=== PATIENT | male | born 1955 | race Hispanic/Latino ===

== ENCOUNTER 2017-06-19 02:16 | Emergency (ER) | payer OTHER ==
[2017-06-19] MEDS ORDERED: Adacel (T-DAP) 0.5 ML VIAL ONE (03:17)
[2017-06-19] MEDS ORDERED: Acetaminophen 325 MG TAB ONE (03:35)
== END 2017-06-19 03:50 | disposition home or self-care (01) ==
LOC: ERS 02:16
DX: S00.412A Abrasion of left ear, initial encounter (principal); F10.129 Alcohol abuse with intoxication, unspecified; I10 Essential (primary) hypertension; K21.9 Gastro-esophageal reflux disease without esophagitis; F17.290 Nicotine dependence, other tobacco product, uncomplicated; Z79.891 Long term (current) use of opiate analgesic; Z79.899 Other long term (current) drug therapy; Z23 Encounter for immunization; W17.2XXA Fall into hole, initial encounter
CPT/HCPCS: 90471; 90715

== ENCOUNTER 2018-12-19 16:44 | Emergency (ER) | payer OTHER ==
[2018-12-19] MEDS ORDERED: ISOVUE-370 76%-LOCM 1 ML ONE (16:56)
[2018-12-19 20:02] LABS: #Basophils 0.1 thou/uL (0.0-0.2); #Eosinphils 0.3 thou/uL (0.0-0.7); #Lymphocytes 2.5 thou/uL (1.20-3.40); #Monocytes 0.8 thou/uL (0.11-0.59); %Basophils 0.7 % (0.0-1.0); %Eosinophils 3.3 % (0.0-10.0); %Lymphocytes 28.8 % (21.0-51.0); %Monocytes 9.2 % (0.0-10.0); %Neutrophils 58.1 % (42.0-75.0); Hemoglobin 13.3 g/dL (14.0-18.0); Mean Corpuscular Hemoglobin 34.9 pg (27.0-31.0); Mean Platelet Volume 6.7 fL (7.4-10.4); Platelet Count 220 thou/uL (130-400); RBC Distribution Width 11.7 % (11.5-14.5); Red Blood Cell (RBC) Count 3.81 mill/uL (4.70-6.10); White Blood Cell (WBC) Count 8.6 thou/uL (4.8-10.8)
[2018-12-19 20:17] LABS: MDiff Complete? YES; Macrocytosis SLIGHT = 6-15 cells (100X) (0-5/hpf); Platelet Morphology Comment Appears Adequate; Polychromasia SLIGHT = 2-3 cells (100X) (0-2/hpf)
[2018-12-19 20:18] LABS: Amphetamine Not Detected (NotDetected); Barbiturates Screen Not Detected (NotDetected); Benzodiazepine Screen Not Detected (NotDetected); Cocaine Metabolite Screen Detected (NotDetected); Medtox Control Line Valid? VALID (VALID); Medtox Reader # READER 4; Methadone Not Detected (NotDetected); Methamphetamine Not Detected (NotDetected); Opiate Screen Not Detected (NotDetected); Oxycodone Screen Not Detected (NotDetected); Phencyclidine (PCP) Not Detected (NotDetected); THC/Cannabinoid Screen Not Detected (NotDetected); Tricyclic Screen Not Detected (NotDetected)
[2018-12-19 20:26] LABS: ALT (SGPT) 24 U/L (8-55); AST (SGOT) 34 U/L (5-34); Acetaminophen Less than 6.0 mcg/mL (10.0-30.0); Albumin 3.4 g/dL (3.4-4.8); Alcohol 44 mg/dL (Less than 10); Alkaline Phosphatase 40 U/L (40-150); Anion Gap 12 mmol/L (10-20); BUN (Urea Nitrogen) 7 mg/dL (8.4-25.7); Bilirubin, Total 0.3 mg/dL (0.2-1.2); Calc. Creatinine Clearance 0 mL/min (70-130); Calcium 8.4 mg/dL (7.8-10.44); Carbon Dioxide 25 mmol/L (23-31); Chloride 110 mmol/L (98-107); Estimated GFR-MDRD Greater than 90; Globulin 2.6 g/dL (2.4-3.5); Glucose 90 mg/dL (80-115); Salicylate Less than 8.0 mg/dL (15.0-30.0); Sodium 143 mmol/L (136-145)
--- NOTE | 2018-12-19 21:20 | CT ---
CT BRAIN WITHOUT CONTRAST: 12/19/18 HISTORY: Trauma, fall, weakness. FINDINGS: Comparison made with exam of 02/23/15. Changes of cortical atrophy, chronic small vessel ischemic disease and old lacunar infarctions in the basal ganglia are again seen. The ventricular size is stable and the basilar cisterns patent. No evidence of acute fracture, hemorrhage, midline shift or abnormal extra-axial fluid collections ar e seen. The bony calvarium is intact. The visualized paranasal sinuses and mastoid air cells are well aerated. IMPRESSION: No CT evidence of acute intracranial process. POS: [facility]
--- NOTE | 2018-12-19 21:23 | CT ---
CT CERVICAL SPINE WITH CORONAL AND SAGITTAL REFORMATIONS: 12/19/18 HISTORY: Trauma, fall, weakness. FINDINGS/IMPRESSION: There is loss of cervical lordosis. Multilevel degenerative changes are present. No evidence of acute fracture, subluxation or facet malalignment is identified. POS: [facility]
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
--- NOTE | 2018-12-23 15:35 | EKG ---
Test Reason : ER Blood Pressure : / mmHG Vent. Rate : 091 BPM Atrial Rate : 091 BPM P-R Int : 120 ms QRS Dur : 088 ms QT Int : 378 ms P-R-T Axes : 049 048 043 degrees QTc Int : 464 ms Normal sinus rhythm Normal ECG Confirmed by OBIE LYNCH ([id number]), photographic editor IDALIA GRANADO ([id number]) on 12/23/2018 3:35:14 PM Referred By: Confirmed By:OBIE LYNCH
== END 2018-12-19 23:30 | disposition home or self-care (01) ==
LOC: ERS 16:44
DX: M25.552 Pain in left hip (principal); I10 Essential (primary) hypertension; K21.9 Gastro-esophageal reflux disease without esophagitis; F17.210 Nicotine dependence, cigarettes, uncomplicated; Z79.899 Other long term (current) drug therapy; W17.89XA Other fall from one level to another, initial encounter
CPT/HCPCS: 36415; 70450; 71260; 72125; 74177; 80053; 80306; 80307; 84484; 85025; 93005; Q9966

== ENCOUNTER 2019-02-19 15:16 | Outpatient (CLI) | payer OTHER ==
--- NOTE | 2019-02-19 15:38 | RAD ---
Left knee 4 views HISTORY: Left knee pain. FINDINGS: Joint spaces are preserved. Very mild osteophytosis. No acute fracture, dislocation, or flu id distention of the suprapatellar bursa. Calcification over the arterial structures. IMPRESSION: No acute osseous abnormalities are demonstrated. Atherosclerosis.
--- NOTE | 2019-02-19 15:44 | RAD ---
LEFT HIP 3 VIEWS: HISTORY: Hip pain. FINDINGS: There are mild degenerative changes at the hip. Mild medial joint narrowing and minimal spurring. N o fracture or acute abnormality. IMPRESSION: Mild degenerative change. No acute process. POS: [facility]
--- NOTE | 2019-02-19 15:45 | RAD ---
RIGHT KNEE 4 VIEWS: HISTORY: Knee pain. FINDINGS: There are mild degenerative changes. Mild narrowing of the medial joint space. Mild spurring from t he femoral and tibial condyles and mild spurring from the posterior patella. No evidence of joint ef fusion. No fracture. IMPRESSION: There are mild to moderate degenerative changes as described. POS: [facility]
== END 2019-02-19 15:17 | disposition home or self-care (01) ==
LOC: RAD-FRANK 15:16
PROVIDERS: ATTEND Internal Medicine
DX: S79.919A Unspecified injury of unspecified hip, initial encounter (principal); M16.12 Unilateral primary osteoarthritis, left hip; M17.0 Bilateral primary osteoarthritis of knee

== ENCOUNTER 2019-06-08 16:10 | Emergency (ER) | payer OTHER ==
[2019-06-08] MEDS ORDERED: Ibuprofen 800 MG TAB ONE (16:49)
== END 2019-06-08 16:55 | disposition home or self-care (01) ==
LOC: ERS 16:10
DX: S00.03XA Contusion of scalp, initial encounter (principal); K21.9 Gastro-esophageal reflux disease without esophagitis; I10 Essential (primary) hypertension; F17.210 Nicotine dependence, cigarettes, uncomplicated; Y04.0XXA Assault by unarmed brawl or fight, initial encounter
CPT/HCPCS: 99284

== ENCOUNTER 2020-06-10 14:13 | Emergency (ER) | payer OTHER ==
--- NOTE | 2020-06-10 15:10 | RAD ---
Exam:4 views left knee HISTORY: Pain COMPARISON: 02/19/2019 FINDINGS: No joint effusion. Preserved joint spaces. No fracture or malalignment. Extensive atheroscl erosis. IMPRESSION: No significant degenerative change.
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
== END 2020-06-10 15:56 | disposition home or self-care (01) ==
LOC: ERS 14:13
DX: S80.12XA Contusion of left lower leg, initial encounter (principal); K21.9 Gastro-esophageal reflux disease without esophagitis; I10 Essential (primary) hypertension; Z79.899 Other long term (current) drug therapy; F17.210 Nicotine dependence, cigarettes, uncomplicated; V09.9XXA Pedestrian injured in unspecified transport accident, initial encounter
CPT/HCPCS: 71045

== ENCOUNTER 2020-08-13 12:08 | Emergency (ER) | payer OTHER ==
--- NOTE | 2020-08-13 13:01 | RAD ---
XR Chest 1 View Portable HISTORY: Weakness COMPARISON: 06/10/2020 FINDINGS: The heart size is normal. Calcified granulomas are again seen. The lungs are well expanded without focal areas of consolidation, pneumothorax or pleural effusions. IMPRESSION: No radiographic evidence of acute cardiopulmonary process.
[2020-08-13 13:12] LABS: #Basophils 0.1 thou/uL (0.0-0.2); #Eosinphils 0.1 thou/uL (0.0-0.7); #Lymphocytes 1.9 thou/uL (1.20-3.40); #Monocytes 1.1 thou/uL (0.11-0.59); #Neutrophils 8.3 thou/uL (1.40-6.50); %Basophils 0.6 % (0.0-1.0); %Eosinophils 1.1 % (0.0-10.0); %Lymphocytes 16.6 % (21.0-51.0); %Monocytes 9.6 % (0.0-10.0); %Neutrophils 72.1 % (42.0-75.0); Hemoglobin 14.7 g/dL (14.0-18.0); Mean Corpuscular Hemoglobin 34.2 pg (27.0-31.0); Mean Platelet Volume 6.6 fL (7.4-10.4); Platelet Count 256 thou/uL (130-400); RBC Distribution Width 11.6 % (11.5-14.5); Red Blood Cell (RBC) Count 4.28 mill/uL (4.70-6.10); White Blood Cell (WBC) Count 11.5 thou/uL (4.8-10.8)
[2020-08-13 13:27] LABS: Acetaminophen Less than 6.0 mcg/mL (10.0-30.0); Alcohol Less than 10 mg/dL (Less than 10); Salicylate Less than 8.0 mg/dL (15.0-30.0)
[2020-08-13 13:28] LABS: ALT (SGPT) 18 U/L (8-55); AST (SGOT) 29 U/L (5-34); Albumin 3.9 g/dL (3.4-4.8); Alkaline Phosphatase 49 U/L (40-110); Anion Gap 16 mmol/L (10-20); BUN (Urea Nitrogen) 12 mg/dL (8.4-25.7); Calc. Creatinine Clearance 0 mL/min (70-130); Calcium 8.9 mg/dL (7.8-10.44); Carbon Dioxide 25 mmol/L (23-31); Chloride 100 mmol/L (98-107); Estimated GFR-MDRD 74; Globulin 2.7 g/dL (2.4-3.5); Glucose 95 mg/dL (80-115); Protein, Total 6.6 g/dL (5.8-8.1); Sodium 137 mmol/L (136-145)
--- NOTE | 2020-08-13 13:33 | CT ---
CT Brain WO Con: 08/13/2020 1:15 PM CLINICAL HISTORY: Altered mental status. IMAGING TECHNIQUE: Multiple CT images were obtained of the brain without IV contrast. COMPARISON: CT the brain dated December 19, 2018 FINDINGS: BRAIN: Evidence of acute infarct: None. Evidence of chronic ischemic change:There are multiple small lacunar infarcts involving the basal mahesh glia and both thalami. There is moderate chronic small vessel white matter ischemic change. Evidence of intracranial hemorrhage: None. Evidence of brain volume loss:There is mild generalized cerebral atrophy. Evidence of midline shift: Third ventricle and septum pellucidum are midline. Ventricles: Normal. No hydrocephalus. SKULL: Intact. VISUALIZED PARANASAL SINUSES: Clear. MASTOID AIR CELLS: Clear. EXTRACRANIAL SOFT TISSUES: Normal. IMPRESSION: 1. No acute intracranial abnormality. 2. Stable chronic ischemic changes above
--- NOTE | 2020-08-13 13:35 | CT ---
CT Cervical Spine WO Con Indication: Fall with possible neck injury COMPARISON: Prior exam dated December 19, 2018 FINDINGS: Spinal alignment: Mild retrolisthesis of C3 on C4 is stable. Craniocervical junction: Within normal limits. Fracture: None. Vertebral body heights: Maintained. Prevertebral soft tissues:Normal appearing. Cervical spine degenerative change: Moderate to severe cervical spondylosis is stable. Lung apices: Clear. IMPRESSION: No acute osseous abnormality.
--- NOTE | 2020-08-13 14:18 | RAD ---
XR Hip Lt 2-3 View INDICATION: Fall with left hip pain COMPARISON: June 10, 2020 and February 19, 2019 FINDINGS: Bones: There is osteonecrosis involving the right and left femoral heads without evidence of subchond ral collapse. Hip joint: There is persistent mild left hip osteoarthrosis. SI joints and symphysis pubis: There is mild left SI joint osteoarthrosis. Intrapelvic contents: There numerous phleboliths within the lower pelvis. Surrounding soft tissues: Radiographically normal. IMPRESSION: 1. No acute osseous abnormality.
--- NOTE | 2020-08-13 14:19 | RAD ---
XR Knee Lt 4 View STANDARD: 08/13/2020 1:50 PM CLINICAL INDICATION: Left knee pain; history of fall COMPARISON: June 10, 2020 FINDINGS: Bones: No acute fracture is demonstrated. Joints: No joint capsular distention.. Soft Tissue: There are severe vascular calcifications seen involving the visualized vasculature.. IMPRESSION: No acute osseous abnormality..
[2020-08-13 15:46] LABS: Bilirubin Negative (Negative); Blood, Urine Negative (Negative); Clarity Clear (Clear); Glucose, Urine (Dipstick) Normal (Negative); Ketone, Urine Negative (Negative); Leukocyte Negative Leu/uL (Negative); Nitrite Negative (Negative); Protein, Urine (Dipstick) Negative (Neg-Trace); pH, Urine 7.5 (5.0-9.0)
[2020-08-13 15:59] LABS: Amphetamine Not Detected (NotDetected); Barbiturates Screen Not Detected (NotDetected); Benzodiazepine Screen Not Detected (NotDetected); Cocaine Metabolite Screen Detected (NotDetected); Medtox Control Line Valid? VALID (VALID); Medtox Reader # READER 4; Methadone Not Detected (NotDetected); Methamphetamine Not Detected (NotDetected); Opiate Screen Not Detected (NotDetected); Oxycodone Screen Not Detected (NotDetected); Phencyclidine (PCP) Not Detected (NotDetected); THC/Cannabinoid Screen Not Detected (NotDetected); Tricyclic Screen Not Detected (NotDetected)
== END 2020-08-13 17:26 | disposition home or self-care (01) ==
LOC: ERS 12:08
DX: M25.562 Pain in left knee (principal); M25.552 Pain in left hip; I10 Essential (primary) hypertension; F17.210 Nicotine dependence, cigarettes, uncomplicated; Z79.899 Other long term (current) drug therapy; W19.XXXA Unspecified fall, initial encounter; Y92.481 Parking lot as the place of occurrence of the external cause
CPT/HCPCS: 36415; 70450; 71045; 72125; 80053; 80306; 80307; 81003; 84443; 84484; 85025; 93005; 96374; J3411

== ENCOUNTER 2020-10-05 18:59 | Emergency (ER) | payer OTHER ==
--- NOTE | 2020-10-05 19:55 | RAD ---
Left knee 4 views HISTORY: Injury. COMPARISON: 08/13/2020. FINDINGS: Joint spaces are preserved. Minimal osteophytosis. No acute fracture, dislocation, or fluid distention of the suprapatellar bursa. Calcification over the arterial structures. IMPRESSION : No acute abnormalities are demonstrated.
--- NOTE | 2020-10-05 20:12 | RAD ---
LEFT ANKLE RADIOGRAPHS THREE VIEWS: Date: 10-05-2020 PROVIDED CLINICAL HISTORY: Pain status post fall. FINDINGS: Subcutaneous vascular calcifications are seen. There is no evidence for fracture or other acute osseo us abnormality. If there is persistent clinical concern, conservative management and follow up imagin g are advised. IMPRESSION: As above. POS: [facility]
--- NOTE | 2020-10-05 20:13 | RAD ---
RIGHT KNEE RADIOGRAPHS FOUR VIEWS: Date: 10-05-2020 PROVIDED CLINICAL HISTORY: Pain status post injury. FINDINGS: There is prominent medial femorotibial joint space narrowing with periarticular osteophyte formation. Vascular calcifications are seen. There is no evidence for fracture or other acute osseous abnormali ty. If there is persistent clinical concern, conservative management and follow up imaging are advise d. IMPRESSION: As above. POS: [facility]
== END 2020-10-05 20:55 | disposition home or self-care (01) ==
LOC: ERS 18:59
DX: M25.562 Pain in left knee (principal); M25.561 Pain in right knee; M25.572 Pain in left ankle and joints of left foot; K21.9 Gastro-esophageal reflux disease without esophagitis; I10 Essential (primary) hypertension; F17.210 Nicotine dependence, cigarettes, uncomplicated; W01.0XXA Fall on same level from slipping, tripping and stumbling without subsequent striking against object, initial encounter; Y92.096 Garden or yard of other non-institutional residence as the place of occurrence of the external cause

== ENCOUNTER 2020-10-12 15:57 | Inpatient (IN) | payer OTHER ==
[2020-10-12 16:38] LABS: #Basophils 0.1 thou/uL (0.0-0.2); #Eosinphils 0.3 thou/uL (0.0-0.7); #Lymphocytes 1.9 thou/uL (1.20-3.40); #Monocytes 1.1 thou/uL (0.11-0.59); %Basophils 0.6 % (0.0-1.0); %Monocytes 12.7 % (0.0-10.0); %Neutrophils 59.7 % (42.0-75.0); Hemoglobin 14.9 g/dL (14.0-18.0); Mean Corpuscular HGB CONC 32.2 g/dL (32.0-36.0); Mean Platelet Volume 6.7 fL (7.4-10.4); Platelet Count 245 thou/uL (130-400); RBC Distribution Width 11.8 % (11.5-14.5); White Blood Cell (WBC) Count 8.3 thou/uL (4.8-10.8)
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
[2020-10-12 16:59] LABS: ALT (SGPT) 22 U/L (8-55); AST (SGOT) 23 U/L (5-34); Acetaminophen Less than 6.0 mcg/mL (10.0-30.0); Albumin 3.7 g/dL (3.4-4.8); Alcohol Less than 10 mg/dL (Less than 10); Alkaline Phosphatase 56 U/L (40-110); Anion Gap 14 mmol/L (10-20); BUN (Urea Nitrogen) 13 mg/dL (8.4-25.7); Bilirubin, Total 0.3 mg/dL (0.2-1.2); CK (CPK) 157 U/L (30-200); Calc. Creatinine Clearance 0 mL/min (70-130); Calcium 9.2 mg/dL (7.8-10.44); Carbon Dioxide 29 mmol/L (23-31); Chloride 104 mmol/L (98-107); Globulin 2.9 g/dL (2.4-3.5); Glucose 86 mg/dL (80-115); Potassium 3.9 mmol/L (3.5-5.1); Protein, Total 6.6 g/dL (5.8-8.1); Salicylate Less than 8.0 mg/dL (15.0-30.0); Sodium 143 mmol/L (136-145)
--- NOTE | 2020-10-12 17:47 | RAD ---
EXAM: 4 views of the left knee HISTORY: Knee pain COMPARISON: 10/05/2020 FINDINGS: No knee effusion is seen. There is no evidence of acute fracture or dislocation. No signifi cant degenerative changes are seen. No soft tissue swelling is present. Vascular calcifications are seen. IMPRESSION: No evidence of acute osseous abnormality.
[2020-10-12 17:55] LABS: Bacteria/HPF None Seen HPF (None Seen); Bilirubin Negative (Negative); Blood, Urine 2+ (Negative); Clarity Clear (Clear); Glucose, Urine (Dipstick) Normal (Negative); Ketone, Urine Negative (Negative); Leukocyte 75 Leu/uL (Negative); Nitrite Negative (Negative); Protein, Urine (Dipstick) 10 mg/dL (Neg-Trace); RBC/HPF Greater than 50 HPF (0-3); Squamous Epithelial 0-3 HPF (0-3); Urobilinogen Normal mg/dL (Less than 2); pH, Urine 6.5 (5.0-9.0)
[2020-10-12 18:04] LABS: Amphetamine Not Detected (NotDetected); Barbiturates Screen Not Detected (NotDetected); Benzodiazepine Screen Detected (NotDetected); Cocaine Metabolite Screen Not Detected (NotDetected); Medtox Control Line Valid? VALID (VALID); Medtox Reader # READER 1; Methadone Not Detected (NotDetected); Methamphetamine Not Detected (NotDetected); Opiate Screen Not Detected (NotDetected); Oxycodone Screen Not Detected (NotDetected); Phencyclidine (PCP) Not Detected (NotDetected); THC/Cannabinoid Screen Not Detected (NotDetected); Tricyclic Screen Not Detected (NotDetected)
[2020-10-12] MEDS ORDERED: Multivitamins, Adult 10 ML, Thiamine HCl 100 MG, Folic Acid 1 MG in Dextrose 5 %-0.45 %... IV SCH (19:15)
--- NOTE | 2020-10-12 22:06 | PDOC.HHP ---
Hospitalist HPI Falls History of Present Illness: This is a 65-year-old homeless male patient with a history of chronic back pain, alcoholism, GERD, hypertension who presents to the ED on account of persistent falls. Patient told me he fell today while he was going to the shop. He complains of left knee pain. Of note he was here 7 days ago for evaluation of a fall and knee pain with negative x-ray. He denied any associated headaches fevers cough shortness of breath. It was noted that while being evaluated by ED physician he had fecal incontinence. As presentation his blood pressure was 132/82, pulse 89, respiratory rate 16, saturating 98% on room air with temperature 98.0. His labs showed WBC of 8.3, hemoglobin 14.9 with macrocytosis of 102. Platelet count was 254. Chemistry was essentially unremarkable. Urinalysis showed 2+ blood 75 leukocyte esterase greater than 50 red blood cells and 4-6 WBCs. Urine drug screen was positive for benzodiazepine. CT scan of his C-spine and brain revealed no acute intracranial processes. X-ray of his left knee also revealed no acute osseous abnormality. ED doctor wanted to discharge the patient on account of lack of sufficient reason to admit however patient tried to get out of the bed and fell. In the ED he received 1 L banana bag. Hospitalist team was consulted for admission Allergies/Adverse Reactions: Allergy/AdvReac Type Severity Reaction Status Date / Time No Known Allergies Allergy Verified 10/13/20 00:05 Home Medications: Medication Instructions Recorded Confirmed Type Acetaminophen [Tylenol Extra 500 mg PO Q6H PRN #60 tab 10/13/20 Rx Strength] Cyanocobalamin (Vitamin B-12) 1,000 mcg PO DAILY #30 tab 10/13/20 Rx [Vitamin B-12] Famotidine [Pepcid] 20 mg PO BID #60 tab 10/13/20 Rx Folic Acid [Folvite] 1 mg PO DAILY #30 tab 10/13/20 Rx Thiamine 100 mg PO DAILY #30 tab 10/13/20 Rx Past History: PMHx: Alcoholism, chronic low back pain, PSHx: None of significance FHx: None of significance. Social: He is homeless, regularly drinks alcohol, smokes cigarettes and history of methamphetamine use Hospitalist HPI ROS Constitutional: reports: weakness, malaise. denies: fever, chills, sweats Respiratory: denies: cough, shortness of breath, hemoptysis, SOB with excertion Cardiovascular: denies: chest pain, palpitations, orthopnea, paroxysmal noc. dyspnea Gastrointestinal: denies: nausea, vomiting, abdominal pain, diarrhea Musculoskeletal: reports: back pain (Low backcurrent). denies: neck pain, shoulder pain, arm pain Neurological: reports: weakness (Lower limbs), incoordination (Has tremor), confusion. denies: numbness, change in speech All other systems reviewed; all pertinent +/- noted in HPI/Subj Hospitalist Exam General Appearance: awake alert Eye: PERRL, anicteric sclera ENT: normocephalic atraumatic, no oropharyngeal lesions Neck: supple Heart: RRR, no murmur, no gallops, no rubs Respiratory: CTAB, no wheezes, no rales, no ronchi Gastrointestinal: soft, non-tender, non-distended, normal bowel sounds Extremities: no cyanosis, no clubbing, no edema Extremities - other findings: Tremulous upper limbs. Neurological: cranial nerve grossly intact Neurological - other findings: Left leg poor 3/5, hypotonic and hyperreflexic. Right 4/5. Psychiatric: normal affect, normal behavior, A&O x 3 Hospitalist Results Result Diagrams: 10/13/20 07:00 10/13/20 07:00 Lab results: Laboratory Last Values WBC 8.3 thou/uL (4.8-10.8) 10/12/20 16:28 RBC 4.50 mill/uL (4.70-6.10) L 10/12/20 16:28 Hgb 14.9 g/dL (14.0-18.0) 10/12/20 16:28 Hct 46.1 % (42.0-52.0) 10/12/20 16:28 MCV 102.0 fL (78.0-98.0) H 10/12/20 16:28 MCH 33.0 pg (27.0-31.0) H 10/12/20 16:28 MCHC 32.2 g/dL (32.0-36.0) 10/12/20 16:28 RDW 11.8 % (11.5-14.5) 10/12/20 16:28 Plt Count 245 thou/uL (130-400) 10/12/20 16:28 MPV 6.7 fL (7.4-10.4) L 10/12/20 16:28 Neutrophils % 59.7 % (42.0-75.0) 10/12/20 16:28 Lymphocytes % 23.0 % (21.0-51.0) 10/12/20 16:28 Monocytes % 12.7 % (0.0-10.0) H 10/12/20 16:28 Eosinophils % 4.0 % (0.0-10.0) 10/12/20 16:28 Basophils % 0.6 % (0.0-1.0) 10/12/20 16:28 Neutrophils # 5.0 thou/uL (1.40-6.50) 10/12/20 16:28 Lymphocytes # 1.9 thou/uL (1.20-3.40) 10/12/20 16:28 Monocytes # 1.1 thou/uL (0.11-0.59) H 10/12/20 16:28 Eosinophils # 0.3 thou/uL (0.0-0.7) 10/12/20 16:28 Basophils # 0.1 thou/uL (0.0-0.2) 10/12/20 16:28 Sodium 143 mmol/L (136-145) 10/12/20 16:28 Potassium 3.9 mmol/L (3.5-5.1) 10/12/20 16:28 Chloride 104 mmol/L (98-107) 10/12/20 16:28 Carbon Dioxide 29 mmol/L (23-31) 10/12/20 16:28 Anion Gap 14 mmol/L (10-20) 10/12/20 16:28 BUN 13 mg/dL (8.4-25.7) 10/12/20 16:28 Creatinine 0.72 mg/dL (0.7-1.3) 10/12/20 16:28 Estimated GFR (MDRD) Greater than 90 10/12/20 16:28 Glucose 86 mg/dL (80-115) 10/12/20 16:28 Calcium 9.2 mg/dL (7.8-10.44) 10/12/20 16:28 Total Bilirubin 0.3 mg/dL (0.2-1.2) 10/12/20 16:28 AST 23 U/L (5-34) 10/12/20 16:28 ALT 22 U/L (8-55) 10/12/20 16:28 Alkaline Phosphatase 56 U/L (40-110) 10/12/20 16:28 Creatine Kinase 157 U/L (30-200) 10/12/20 16:28 Serum Total Protein 6.6 g/dL (5.8-8.1) 10/12/20 16: Albumin 3.7 g/dL (3.4-4.8) 10/12/20 16: Globulin 2.9 g/dL (2.4-3.5) 10/12/20 16: Albumin/Globulin Ratio 1.3 g/dL (1.2-2.2) 10/12/20 16:28 Urine Color Yellow (Yellow) 10/12/20 17:32 Urine Clarity Clear (Clear) 10/12/20 17: Urine pH 6.5 (5.0-9.0) 10/12/20 17:32 Ur Specific [place] 1.020 (1.002-1.036) 10/12/20 17:32 Urine Protein 10 mg/dL (Neg-Trace) 10/12/20 17:32 Urine Glucose (UA) Normal mg/dL (Negative) 10/12/20 17: Urine Ketones Negative mg/dL (Negative) 10/12/20 17:32 Urine Blood 2+ (Negative) A 10/12/20 17:32 Urine Nitrite Negative (Negative) 10/12/20 17: Urine Bilirubin Negative (Negative) 10/12/20 17:32 Urine Urobilinogen Normal mg/dL (Less than 2) 10/12/20 17:32 Ur Leukocyte Esterase 75 Irvin/uL (Negative) A 10/12/20 17:32 Urine RBC Greater than 50 HPF (0-3) A 10/12/20 17:32 Urine WBC 4-6 HPF (0-3) A 10/12/20 17:32 Ur Squamous Epith Cells 0-3 HPF (0-3) 10/12/20 17:32 Urine Bacteria None Seen HPF (None Seen) 10/12/20 17:32 Hyaline Casts 0-3 LPF (0-3) 10/12/20 17:32 Salicylates Less than 8.0 mg/dL (15.0-30.0) L 10/12/20 16:28 Urine Opiates Screen Not Detected (NotDetected) 10/12/20 17:32 Ur Oxycodone Screen Not Detected (NotDetected) 10/12/20 17:32 Urine Methadone Screen Not Detected (NotDetected) 10/12/20 17:32 Ur Propoxyphene Screen Not Detected (NotDetected) 10/12/20 17:32 Acetaminophen Less than 6.0 mcg/mL (10.0-30.0) L 10/12/20 16:28 Ur Barbiturates Screen Not Detected (NotDetected) 10/12/20 17:32 Ur Tricyclics Screen Not Detected (NotDetected) 10/12/20 17:32 Ur Phencyclidine Scrn Not Detected (NotDetected) 10/12/20 17:32 Ur Amphetamines Screen Not Detected (NotDetected) 10/12/20 17:32 U Methamphetamines Scrn Not Detected (NotDetected) 10/12/20 17:32 U Benzodiazepines Scrn Detected (NotDetected) H 10/12/20 17:32 U Cocaine Metab Screen Not Detected (NotDetected) 10/12/20 17:32 U Cannabinoids Screen Not Detected (NotDetected) 10/12/20 17:32 Drug Screen Comment () 10/12/20 17:32 Plasma Alcohol Less than 10 mg/dL (Less than 10) 10/12/20 16:28 Hospitalist H&P A/P Plan: This a 65-year-old male patient with a history of alcohol abuse, chronic low back pain and homeless who presents with recurrent falls with lower leg weakness concerning for possible myelitis or cauda equina compression. Bilateral lower limb weakness More on the left than on the right if hypertonia hyperreflexia on the left. Possible chronic spinal cord or cauda equina compression Given chronicity we will do MRI of contrast Check B12 PT a.m. Neuro consult in a.m. Alcohol abuse Upper limbs tremulous Monitor Withdrawal protocol as indicated. Recurrent falls Likely secondary to possible myelopathy PT a.m. Neuro consult VT prophylaxisLovenox CODE STATUSfull code
[2020-10-12 23:48] VITALS: BMI 29.0
[2020-10-13 07:27] LABS: #Basophils 0.1 thou/uL (0.0-0.2); #Eosinphils 0.4 thou/uL (0.0-0.7); #Lymphocytes 2.2 thou/uL (1.20-3.40); #Monocytes 1.1 thou/uL (0.11-0.59); #Neutrophils 4.2 thou/uL (1.40-6.50); %Basophils 1.2 % (0.0-1.0); %Eosinophils 5.6 % (0.0-10.0); %Lymphocytes 27.1 % (21.0-51.0); %Monocytes 13.4 % (0.0-10.0); %Neutrophils 52.8 % (42.0-75.0); Hemoglobin 13.8 g/dL (14.0-18.0); Mean Corpuscular HGB CONC 32.5 g/dL (32.0-36.0); Mean Corpuscular Hemoglobin 33.2 pg (27.0-31.0); Mean Platelet Volume 6.9 fL (7.4-10.4); Platelet Count 217 thou/uL (130-400); RBC Distribution Width 11.7 % (11.5-14.5); Red Blood Cell (RBC) Count 4.15 mill/uL (4.70-6.10)
[2020-10-13 07:40] LABS: Anion Gap 11 mmol/L (10-20); BUN (Urea Nitrogen) 14 mg/dL (8.4-25.7); Calc. Creatinine Clearance 111 mL/min (70-130); Carbon Dioxide 28 mmol/L (23-31); Chloride 107 mmol/L (98-107); Glucose 109 mg/dL (80-115); Potassium 3.9 mmol/L (3.5-5.1); Sodium 142 mmol/L (136-145)
[2020-10-13] MEDS ORDERED: Zolpidem Tartrate 5 MG TAB PO PRN (08:04)
[2020-10-13] MEDS ORDERED: Calcium Carbonate 500 MG ChewTAB PO PRN (08:04)
[2020-10-13] MEDS ORDERED: Cepastat Lozenges 1 LOZ PO PRN (08:04)
[2020-10-13] MEDS ORDERED: Bisacodyl 5 MG TAB PO PRN (08:04)
[2020-10-13] MEDS ORDERED: Ondansetron PF 4 MG/2 ML Vial IVP PRN (08:04)
[2020-10-13] MEDS ORDERED: hydrALAZINE 20 MG/ML VIAL SLOW IVP PRN (08:04)
[2020-10-13] MEDS ORDERED: Loperamide HCl 2 MG CAP PO PRN (08:04)
[2020-10-13] MEDS ORDERED: Sodium Chloride 0.65% Nasal 44 ML BOT EA NARE PRN (08:04)
[2020-10-13] MEDS ORDERED: Senokot S 8.6-50 MG TAB PO PRN (08:04)
[2020-10-13] MEDS ORDERED: Loratadine 10 MG TAB PO PRN (08:04)
[2020-10-13] MEDS ORDERED: Ondansetron ODT 4 MG TAB SL PRN (08:04)
[2020-10-13] MEDS ORDERED: Acetaminophen 500 MG TAB PO PRN (08:04)
[2020-10-13 08:49] LABS: Syphilis Antibody Nonreactive (Nonreactive); Syphilis Antibody Index 0.04 S/CO (<1.00 Non-Reactive)
[2020-10-13] MEDS ORDERED: FLU VACC QS2020-21(6MOS UP)/PF 60 MCG/0.5 ML SYRINGE IM ONE (09:00)
--- NOTE | 2020-10-13 10:25 | MRI ---
MRI of thebrain without contrast: 10/13/2020 COMPARISON:None available HISTORY:Lower leg weakness, frequent falls TECHNIQUE: Multiplanar multisequence MR imaging of thebrain without contrast Findings:The diffusion weighted imaging demonstrates no evidence for acute infarction. The diffusion weighted imaging is limited by motion. There is a linear area of blooming artifact within the dorsal aspect of the thalamus on the left sugg esting prior hemorrhage. There is moderate cerebral volume loss with associated prominence of the CSF containing spaces. There is multifocal periventricular, deep, and subcortical white matter T2 and FLAIR hyperintensity, evidence of small vessel disease. Arterial flow voids at the axial level of the skull base appear unremarkable on the T2-weighted imagi ng. Regional bone marrow signal intensity appears within normal limits. IMPRESSION:Small vessel disease and cerebral volume loss. No evidence for acute infarction.
[2020-10-13 10:32] LABS: SARS-CoV-2 PCR by NAA Not Detected (NotDetected)
[2020-10-13] MEDS ORDERED: Magnevist 469MG/ML 20 ML VIAL ONE ×2 (10:36→10:38)
--- NOTE | 2020-10-13 10:38 | MRI ---
Exam: Thoracic spine MRI with and without contrast HISTORY: Fall. Lower limb weakness, back pain. Evaluate for lesion within the thoracic cord. FINDINGS: Diffuse T1 marrow signal intensity of the thoracic vertebra. Heterogeneity throughout the thoracic sp ine is noted. Correlate for senescent change with superimposed anemia or marrow infiltrative process. There is no evidence of associated enhancement. No significant STIR hyperintensity in the ve rtebral bodies. Appropriate signal intensity of the visualized paraspinal muscles and solid organs. There are mild de pendent atelectatic changes. The thoracic cord has a normal size and signal intensity. No cord expansion. No cord malacia. Conus m edullaris terminates beyond the mid T12 level. Throughout the thoracic spine, neural foramina are patent. There is multilevel degenerative disc dise ase with loss of disc space height and disc desiccation. T1-T2: Mild loss of disc space height. Broad based disc bulge with mild central canal stenosis. T2-T3: Mild loss of disc space height. Broad based disc bulge with mild central canal stenosis. T3-T4: Mild loss of disc space height. Broad based disc bulge with mild central canal stenosis. T4-T5: Left paracentral disc bulge. Mild central canal stenosis. T5-T6: Left paracentral disc bulge. No significant canal stenosis. T8-T9: Small left paracentral disc herniation. No significant central canal stenosis. T9-T10: Small left and right paracentral disc herniations. No significant central canal stenosis. IMPRESSION: 1. Multilevel degenerative changes of the thoracic spine. 2. No abnormal signal intensity throughout the thoracic cord. 3. No significant central canal stenosis or significant neural foraminal narrowing, throughout the th oracic spine. 4. Abnormal T1 marrow signal intensity of the thoracic vertebra. Correlate for senescent change with superpose edema and/or marrow infiltrative process. Transcribed Date/Time: 10/13/2020 11:03 AM
[2020-10-13] MEDS: Famotidine 20 MG TAB PO SCH ×2 (10:39→21:36)
[2020-10-13] MEDS: Cyanocobalamin (Vitamin B-12) 1,000 MCG TAB PO SCH (10:39)
[2020-10-13] MEDS: Folic Acid 1 MG TAB PO SCH (10:39)
[2020-10-13] MEDS: Enoxaparin Sodium 40 MG/0.4 ML SYRINGE SC SCH (10:40)
--- NOTE | 2020-10-13 10:45 | PDOC.HOSPP ---
- Subjective Encounter Date: 10/13/20 Encounter Time: 08:20 Subjective: Patient seen and examined. No new complaints. No overnight events - Objective Vital Signs & Weight: Vital Signs (12 hours) Temp Pulse Resp BP Pulse Ox 10/13/20 07:00 98.2 F 76 20 132/71 95 10/13/20 00:48 98.4 F 82 18 119/71 98 Weight Weight 174 lb 2.643 oz Result Diagrams: 10/13/20 07:00 10/13/20 07:00 Radiology Reviewed by me: Yes (MRI brain, MRI thoracic spine reviewed) Hospitalist ROS - Review of Systems Constitutional: reports: weakness. denies: fever, chills, sweats, malaise, other Respiratory: denies: cough, dry, shortness of breath, hemoptysis, SOB with excertion, pleuritic pain, sputum, wheezing, other Cardiovascular: denies: chest pain, palpitations, orthopnea, paroxysmal noc. dyspnea, edema, light headedness, other Gastrointestinal: denies: nausea, vomiting, abdominal pain, diarrhea, constipation, melena, hematochezia, other Genitourinary: denies: dysuria, frequency, incontinence, hematuria, retention, other Musculoskeletal: denies: neck pain, shoulder pain, arm pain, back pain, hand pain, leg pain, foot pain, other Neurological: reports: incoordination. denies: weakness, numbness, change in speech, confusion, seizures, other - Medication Medications: Active Medications Generic Name Dose Route Start Last Admin Trade Name Freq PRN Reason Stop Dose Admin Cyanocobalamin 1,000 mcg 10/13/20 09:00 10/13/20 10:39 Cyanocobalamin (Vitamin B-12) 1,000 Mcg Tab PO 1,000 mcg DAILY JULIANA Administration Enoxaparin Sodium 40 mg 10/13/20 09:00 10/13/20 10:40 Enoxaparin Sodium 40 Mg/0.4 Ml Syringe SC 40 mg 0900 JULIANA Administration Famotidine 20 mg 10/13/20 09:00 10/13/20 10:39 Famotidine 20 Mg Tab PO 20 mg BID JULIANA Administration Folic Acid 1 mg 10/13/20 09:00 10/13/20 10:39 Folic Acid 1 Mg Tab PO 1 mg DAILY JULIANA Administration Hospitalist Exam Vitals: Vital Signs (12 hours) Temp Pulse Resp BP Pulse Ox 10/13/20 07:00 98.2 F 76 20 132/71 95 10/13/20 00:48 98.4 F 82 18 119/71 98 Weight Weight 174 lb 2.643 oz General Appearance: NAD, awake alert Eye: PERRL, anicteric sclera ENT: normocephalic atraumatic, no oropharyngeal lesions Neck: supple, symmetric, no JVD, no thyromegaly Heart: RRR, no murmur, no gallops, no rubs Respiratory: no wheezes, no rales, no ronchi Gastrointestinal: soft, non-tender, non-distended, normal bowel sounds Extremities: no clubbing, no edema Skin: normal turgor, no lesions Neurological: no new deficit Musculoskeletal: normal tone, normal strength Psychiatric: normal affect, normal behavior Hosp A/P (1) Frequent falls Code(s): R29.6 - REPEATED FALLS Status: Acute (2) Macrocytosis Code(s): D75.89 - OTHER SPECIFIED DISEASES OF BLOOD AND BLOOD-FORMING ORGANS Status: Chronic (3) Alcohol abuse Code(s): F10.10 - ALCOHOL ABUSE, UNCOMPLICATED Status: Chronic - Plan old records reviewed/req, PT/OT, high school social science teacher MRI brain, MRI cervical spine and thoracic spine has been ordered and done Neurology has been consulted, EEG has been ordered Syphilis negative, B12 and folate normal, We will start PT OT We will consider rehab evaluation Continue folic acid, vitamin B12 and thiamine
--- NOTE | 2020-10-13 11:12 | MRI ---
MRI LUMBAR SPINE WITH AND WITHOUT CONTRAST: DATE: 10/13/2020 HISTORY: 65-year-old male with low back pain, lower extremity weakness, and false COMPARISON: 05/16/2008 TECHNIQUE: Multiple sequences obtained in axial and sagittal planes, pre and post IV injection of gadolinium-bas ed contrast agent. FINDINGS: Distended urinary bladder. 5 lumbar-type vertebrae. Conus medullaris terminates at L1. No high-grade vertebral body collapse. No evidence of epidural abscess or neoplastic activity. High-grade degenerative disc disease at every level from T12-L1 through L5-S1, with high-grade disc s pace narrowing, worse since 2007. Levoscoliosis. The degree of degenerative disc disease and facet DJD is asymmetrically greater on the concave sides of the curvatures, which is on the right at L1-2, L2-3, and L3-4, and on the left at L4-5 and L5-S1 along the counter curvature. T12-L1:Low grade left neural foraminal stenosis. No right neural foraminal stenosis. No significant c entral spinal canal stenosis. L1-2: New prominent right-sided Modic type I endplate marrow edema along the concavity of curvature. Effacement of right side of thecal sac due to the curvature. Retrolisthesis of L1 on L2. Disc bulge. No significant central spinal canal stenosis. Mild thecal sac stenosis. Interval progression o f moderate to severe right neural foraminal stenosis. Mild to moderate left neural foraminal stenosis. L2-3:Right-sided Modic type II endplate marrow changes, new. Moderate right neural foraminal stenosis . Mild to moderate left neural foraminal stenosis. Disc bulge. Mild to moderate ligamentum flavum thickening. Mild central spinal canal stenosis. Posterior epidural fat pad. Moderate thecal sac steno sis. No major interval change in caliber of spinal canal and neural foramina. L3-4:Mild right-sided Modic type I endplate marrow edema. Moderate right neural foraminal stenosis ap pears slightly worse. Moderate left neural foraminal stenosis, minimally worse. Disc bulge. Moderate ligamentum flavum thickening. Bilateral moderate facet DJD. Distortion of spinal canal. Mild central spinal canal stenosis. Prominent posterior epidural fat pad. New small, inferiorly migrated disc extrusion fragment that measures approximately 4 x 5 x 9 mm, migrating down to the pedi sidney level of L4, and impinging on the left L4 nerve root at the L4 level. Moderate bilateral facet DJD. Distortion of spinal canal. Mild central spinal canal stenosis. Posterior epidural fat pad resul ts in severe thecal sac stenosis, worse than on prior study. Grade 1 left lateral subluxation of L3 on L4. L4-5:Disc bulge. Moderate right neural foraminal stenosis. Interval worsening of left neural foramina l stenosis which is now severe. Asymmetrically severe left-sided facet DJD. No central spinal canal stenosis. In addition to the disc bulge, slight inferior migration of central and left paracentral sm all disc herniation which may be impinging on the left L5 nerve root at the left lateral epidural space.. L5-S1:Bilateral L5 pars interarticularis defects result in grade 1 or 2 anterolisthesis of L5 on S1. Prominent diffuse disc bulge. Severe bilateral neural foraminal stenosis with chronic compression of exiting right L5 nerves root appears slightly worse now than before no high-grade central spinal c anal stenosis. Circumferential epidural fat pad results in severe thecal sac stenosis, greater than before. IMPRESSION: 1) severe lumbar spondylosis, with significant worsening of severe degenerative disc disease at all l evels since 05/16/2008 2) grade 1 or 2 spondylolisthesis at L5-S1 due to bilateral L5 spondylolysis. 3) that is associated with very severe bilateral neural foraminal stenosis at L5-S1, somewhat worse s andrew 05/16/2008, causing severe chronic compression of exiting bilateral L5 nerve roots. 4) severe left neural foraminal stenosis at L4-5. Other levels of high-grade neural foraminal stenosi s include right L1-2 and left L3-4. 5) at the L4 level, there is a new finding of impingement of left L4 nerve root due to inferiorly [place] rated disc extrusion from the L3-4 level. 6) scoliosis
[2020-10-13] MEDS: Thiamine 100 MG TAB PO SCH (12:54)
--- NOTE | 2020-10-13 13:20 | CON ---
NEUROLOGY CONSULTATION DATE OF CONSULTATION: 10/13/2020 REASON FOR CONSULTATION: Falls/altered mental status. HISTORY OF PRESENT ILLNESS: Mr. Owen Bedoya is a 65-year-old homeless male with medical history significant for chronic back pain, alcohol abuse, GERD, and hypertension, presented to the emergency room because of confusion and persistent falls. Per the patient, he was going to a shop and then he had severe back_ pain, which resulted in a fall. He also reported intermittent confusion. Knee x-ray was done, which was negative, but then he had repeated falls, and he decided to come to the emergency room for further evaluation. He also has fecal incontinence. In the emergency room, MRI of the spine was done, which showed severe spondylosis with interval worsening since 2007 in the lumbar spine and also multilevel degenerative disk disease. CT scan of the brain did not reveal acute intracranial process. MRI of the brain showed a chronic small vessel disease, but no acute intracranial pathology. He does have history of alcohol abuse and drinks about 5 to 10 cans per day. His last drink was before coming to the emergency room, so he received 1 L of banana bag and admitted for further evaluation. The patient denies nausea, vomiting, headache, chest pain, abdominal pain, recent illness, or recent exposure to COVID. He does have back pain and history of falls. ALLERGIES: NO KNOWN DRUG ALLERGIES. REVIEW OF SYSTEMS: All systems reviewed and were negative except the pertinent positive and negative mentioned in the HPI. HOME MEDICATIONS: He does not take any medications. PAST MEDICAL HISTORY: Alcoholism, chronic low back pain. PAST SURGICAL HISTORY: No significant past surgical history. FAMILY HISTORY: No significant past family history. SOCIAL HISTORY: He is homeless. Drinks regularly about 5 to 10 beer cans day. He also has history of methamphetamine abuse and tobacco abuse. Vital Signs & Weight: Vital Signs (12 hours) Temp Pulse Resp BP Pulse Ox 10/13/20 07:00 98.2 F 76 20 132/71 95 10/13/20 00:48 98.4 F 82 18 119/71 98 Weight Weight 174 lb 2.643 oz Active Medications Generic Name Dose Route Start Last Admin Trade Name Freq PRN Reason Stop Dose Admin Cyanocobalamin 1,000 mcg 10/13/20 09:00 10/13/20 10:39 Cyanocobalamin (Vitamin B-12) 1,000 Mcg Tab PO 1,000 mcg DAILY JULIANA Administration Enoxaparin Sodium 40 mg 10/13/20 09:00 10/13/20 10:40 Enoxaparin Sodium 40 Mg/0.4 Ml Syringe SC 40 mg 0900 JULIANA Administration Famotidine 20 mg 10/13/20 09:00 10/13/20 10:39 Famotidine 20 Mg Tab PO 20 mg BID JULIANA Administration Folic Acid 1 mg 10/13/20 09:00 10/13/20 10:39 Folic Acid 1 Mg Tab PO 1 mg DAILY JULIANA Administration Vitals: Vital Signs (12 hours) Temp Pulse Resp BP Pulse Ox 10/13/20 07:00 98.2 F 76 20 132/71 95 10/13/20 00:48 98.4 F 82 18 119/71 98 Weight Weight 174 lb 2.643 oz PHYSICAL EXAMINATION: General Appearance: NAD, awake alert Eye: PERRL, anicteric sclera ENT: normocephalic atraumatic, no oropharyngeal lesions Neck: supple, symmetric, no JVD, no thyromegaly Heart: RRR, no murmur, no gallops, no rubs Respiratory: no wheezes, no rales, no ronchi Gastrointestinal: soft, non-tender, non-distended, normal bowel sounds Extremities: no clubbing, no edema Skin: normal turgor, no lesions Neurological: Mental status, the patient is alert and oriented to person and place, but not time or year. Cranial nerves 2 through 12 intact. Motor, muscle tone and bulk are normal. Moving all 4 extremities equally and symmetrically. Sensory, withdraws to nailbed pressure bilaterally. Cerebellar, finger-nose testing intact. Gait deferred due to the patient's safety reasons. DATA REVIEWED: I reviewed the head CT, which was negative for acute intracranial pathology. MRI of the brain showed chronic small vessel disease, but no acute intracranial process. MRI of the cervical, thoracic, and lumbar spine reviewed, results noted. He did have interval worsening of degenerative disk disease and spondylosis in the thoracic spine and multilevel degenerative changes in the cervical and thoracic spine, but no canal stenosis or cord compression. EEG to evaluate for confusion reviewed, which was negative for seizure activity. 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 Continue CIWA protocol. Continue folic acid, vitamin B12, and thiamine. Neuro checks every 4 hours. EEG to evaluate for confusion is negative for seizure activity. Monitor blood pressure and blood glucose. Patient counseled about alcohol abuse. PT/OT. Continue medical management per primary team. Plan discussed with the patient and the nursing staff. Thank you for the consult. Job ID: [id number] [email or web address]
--- NOTE | 2020-10-13 14:23 | PDOC.EEG ---
Neurology EEG Report - Report Report: This EEG was performed using 24 channel [employer] video EEG machine with 24 disc electrodes. This was an extended 2 hours 4 minutes of inpatient video EEG recording. Digital analysis of the EEG was done for spike and seizure detection which revealed no abnormalities. Background: The posterior background rhythm is not observed.Low amplitude EEG with excessive beta activity. Hyperventilation: Not performed. Photic Stimulation: No significant response. Sleep: No stage change is observed. EEG Diagnosis: Generalized irregular theta activity seen during the recording. Absence of posterior background rhythm. Clinical Interpretation: This EEG is consistent with mild to moderate generalized nonspecific cerebral dysfunction. No electrographic seizures captured during the recording
[2020-10-14] MEDS: Thiamine 100 MG TAB PO SCH (09:12)
[2020-10-14] MEDS: Folic Acid 1 MG TAB PO SCH (09:12)
[2020-10-14] MEDS: Enoxaparin Sodium 40 MG/0.4 ML SYRINGE SC SCH (09:13)
[2020-10-14] MEDS: Famotidine 20 MG TAB PO SCH ×2 (09:13→21:35)
[2020-10-14] MEDS: Cyanocobalamin (Vitamin B-12) 1,000 MCG TAB PO SCH (09:13)
[2020-10-14] MEDS: HYDROcodone/Acetaminophen 5/325 mg Tablet PO PRN ×2 (09:25→21:35)
--- NOTE | 2020-10-14 09:59 | PDOC.HOSPP ---
- Subjective Encounter Date: 10/14/20 Encounter Time: 07:30 Subjective: Patient seen and examined bedside today, patient is not able to ambulate with physical therapy, - Objective Vital Signs & Weight: Vital Signs (12 hours) Temp Pulse Resp BP Pulse Ox 10/14/20 08:00 98.0 F 73 20 133/74 97 Weight Weight 174 lb 2.643 oz I&O: 10/13/20 10/14/20 10/15/20 06:59 06:59 06:59 Intake Total 1290 Output Total 475 Balance 815 Result Diagrams: 10/13/20 07:00 10/13/20 07:00 Radiology Reviewed by me: Yes (MRI report reviewed) Hospitalist ROS - Review of Systems Constitutional: reports: weakness. denies: fever, chills, sweats, malaise, other ENT: denies: ear pain, ear discharge, nose pain, nose discharge, nose congestion, mouth pain, mouth swelling, throat pain, throat swelling, other Respiratory: denies: cough, dry, shortness of breath, hemoptysis, SOB with e xcertion, pleuritic pain, sputum, wheezing, other Cardiovascular: denies: chest pain, palpitations, orthopnea, paroxysmal noc. dyspnea, edema, light headedness, other Gastrointestinal: denies: nausea, vomiting, abdominal pain, diarrhea, constipation, melena, hematochezia, other Genitourinary: denies: dysuria, frequency, incontinence, hematuria, retention, other Musculoskeletal: reports: back pain. denies: neck pain, shoulder pain, arm pain, hand pain, leg pain, foot pain, other Skin: denies: rash, lesions, willem, bruising, other - Medication Medications: Active Medications Generic Name Dose Route Start Last Admin Trade Name Freq PRN Reason Stop Dose Admin Hydrocodone Bitart/Acetaminophen 1 tab 10/13/20 08:04 10/14/20 09:25 Hydrocodone/Acetaminophen 5/325 Mg Tablet PO 1 tab Q4H PRN Administration Moderate Pain (4-6) Cyanocobalamin 1,000 mcg 10/13/20 09:00 10/14/20 09:13 Cyanocobalamin (Vitamin B-12) 1,000 Mcg Tab PO 1,000 mcg DAILY JULIANA Administration Enoxaparin Sodium 40 mg 10/13/20 09:00 10/14/20 09:13 Enoxaparin Sodium 40 Mg/0.4 Ml Syringe SC 40 mg 0900 JULIANA Administration Famotidine 20 mg 10/13/20 09:00 10/14/20 09:13 Famotidine 20 Mg Tab PO 20 mg BID JULIANA Administration Folic Acid 1 mg 10/13/20 09:00 10/14/20 09:12 Folic Acid 1 Mg Tab PO 1 mg DAILY JULIANA Administration Thiamine HCl 100 mg 10/13/20 09:00 10/14/20 09:12 Thiamine 100 Mg Tab PO 100 mg DAILY JULIANA Administration Hospitalist Exam Vitals: Vital Signs (12 hours) Temp Pulse Resp BP Pulse Ox 10/14/20 08:00 98.0 F 73 20 133/74 97 Weight Weight 174 lb 2.643 oz General Appearance: NAD, ill appearing Eye: PERRL, anicteric sclera ENT: normocephalic atraumatic, no oropharyngeal lesions Neck: supple, symmetric, no JVD, no thyromegaly Heart: RRR, no murmur, no gallops, no rubs Respiratory: no wheezes, no rales, no ronchi Gastrointestinal: soft, non-tender, non-distended, normal bowel sounds Extremities: no cyanosis, no clubbing, no edema Skin: normal turgor, no lesions Neurological: no focal deficits Musculoskeletal: normal tone, normal strength Psychiatric: normal affect, normal behavior Hosp A/P (1) Lumbar spondylosis with myelopathy Code(s): M47.16 - OTHER SPONDYLOSIS WITH MYELOPATHY, LUMBAR REGION Status: Acute (2) Frequent falls Code(s): R29.6 - REPEATED FALLS Status: Acute (3) Macrocytosis Code(s): D75.89 - OTHER SPECIFIED DISEASES OF BLOOD AND BLOOD-FORMING ORGANS Status: Chronic (4) Alcohol abuse Code(s): F10.10 - ALCOHOL ABUSE, UNCOMPLICATED Status: Chronic - Plan old records reviewed/req, PT/OT, 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
[2020-10-15] MEDS: Thiamine 100 MG TAB PO SCH (08:03)
[2020-10-15] MEDS: Folic Acid 1 MG TAB PO SCH (08:03)
[2020-10-15] MEDS: HYDROcodone/Acetaminophen 5/325 mg Tablet PO PRN (08:03)
[2020-10-15] MEDS: Famotidine 20 MG TAB PO SCH ×2 (08:03→20:43)
[2020-10-15] MEDS: Cyanocobalamin (Vitamin B-12) 1,000 MCG TAB PO SCH (08:04)
[2020-10-15] MEDS: Enoxaparin Sodium 40 MG/0.4 ML SYRINGE SC SCH (08:04)
--- NOTE | 2020-10-15 18:31 | PDOC.HOSPP ---
- Subjective Encounter Date: 10/15/20 Subjective: Patient was somnolent, but awoke briefly and indicated he was without complaint. [place] ok. - Objective Vital Signs & Weight: Vital Signs (12 hours) Temp Pulse Resp BP Pulse Ox 10/15/20 07:29 98.2 F 72 20 129/77 96 Weight Weight 174 lb 2.643 oz I&O: 10/14/20 10/15/20 10/16/20 06:59 06:59 06:59 Intake Total 1290 1330 Output Total 475 775 Balance 815 555 Result Diagrams: 10/13/20 07:00 10/13/20 07:00 Hospitalist ROS - Medication Medications: Active Medications Generic Name Dose Route Start Last Admin Trade Name Freq PRN Reason Stop Dose Admin Hydrocodone Bitart/Acetaminophen 1 tab 10/13/20 08:04 10/15/20 08:03 Hydrocodone/Acetaminophen 5/325 Mg Tablet PO 1 tab Q4H PRN Administration Moderate Pain (4-6) Cyanocobalamin 1,000 mcg 10/13/20 09:00 10/15/20 08:04 Cyanocobalamin (Vitamin B-12) 1,000 Mcg Tab PO 1,000 mcg DAILY JULIANA Administration Enoxaparin Sodium 40 mg 10/13/20 09:00 10/15/20 08:04 Enoxaparin Sodium 40 Mg/0.4 Ml Syringe SC 40 mg 0900 JULIANA Administration Famotidine 20 mg 10/13/20 09:00 10/15/20 08:03 Famotidine 20 Mg Tab PO 20 mg BID JULIANA Administration Folic Acid 1 mg 10/13/20 09:00 10/15/20 08:03 Folic Acid 1 Mg Tab PO 1 mg DAILY JULIANA Administration Thiamine HCl 100 mg 10/13/20 09:00 10/15/20 08:03 Thiamine 100 Mg Tab PO 100 mg DAILY JULIANA Administration Hospitalist Exam Vitals: Vital Signs (12 hours) Temp Pulse Resp BP Pulse Ox 10/15/20 07:29 98.2 F 72 20 129/77 96 Weight Weight 174 lb 2.643 oz General - other findings: Patient is very somnolent. He did awaken briefly and then promptly slept Heart: RRR, no murmur, no gallops, no rubs, normal peripheral pulses Respiratory: CTAB, no wheezes, no rales, no ronchi, normal chest expansion, no tachypnea, normal percussion Gastrointestinal: soft, non-tender, non-distended, normal bowel sounds, no palpa ble masses, no hepatomegaly, no splenomegaly, no bruit Extremities: no cyanosis, no clubbing, no edema Skin: normal turgor Musculoskeletal: generalized weakness Psychiatric: somnolent, lethargic Hosp A/P (1) Lumbar spondylosis with myelopathy Code(s): M47.16 - OTHER SPONDYLOSIS WITH MYELOPATHY, LUMBAR REGION Status: Ac [place] (2) Frequent falls Code(s): R29.6 - REPEATED FALLS Status: Acute (3) Alcohol abuse Code(s): F10.10 - ALCOHOL ABUSE, UNCOMPLICATED Status: Chronic (4) Macrocytosis Code(s): D75.89 - OTHER SPECIFIED DISEASES OF BLOOD AND BLOOD-FORMING ORGANS Status: Chronic (5) Homelessness Code(s): Z59.0 - HOMELESSNESS Status: Acute - Plan Lumbar MRI IMPRESSION: 1) severe lumbar spondylosis, with significant worsening of severe degenerative disc disease at all levels since 05/16/2008 2) grade 1 or 2 spondylolisthesis at L5-S1 due to bilateral L5 spondylolysis. 3) that is associated with very severe bilateral neural foraminal stenosis at L5-S1, somewhat worse since 05/16/2008, causing severe chronic compression of exiting bilateral L5 nerve roots. 4) severe left neural foraminal stenosis at L4-5. Other levels of high-grade neural foraminal stenosis include right L1-2 and left L3-4. 5) at the L4 level, there is a new finding of impingement of left L4 nerve root due to inferiorly migrated disc extrusion from the L3-4 level. 6) scoliosis Thoracic MRI IMPRESSION: 1. Multilevel degenerative changes of the thoracic spine. 2. No abnormal signal intensity throughout the thoracic cord. 3. No significant central canal stenosis or significant neural foraminal narrowing, throughout the thoracic spine. 4. Abnormal T1 marrow signal intensity of the thoracic vertebra. Correlate for senescent change with superpose edema and/or marrow infiltrative process. Lumbar spondylosis with myelopathy: Patient has multiple severe degenerative changes of the lumbar spine causing compromise at multiple nerve roots. Physical therapy reveals the patient has some significant defects in his left lower extremity. Appears to be contributing to some falls although these are likely multifactor ial. Neurosurgery consult pending. Frequent falls: Patient has a history of daily alcohol abuse and some history of drug abuse. He has the lumbar myelopathy. 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 All of these could be contributing to the patient's falls. Continue with physical therapy. Neurosurgery consult pending. Alcohol abuse: Patient has a history of daily alcohol use and some history of drug abuse. Continue with vitamin supplementation. To this point patient has not shown signs of withdrawal. He was particularly somnolent today. I will check an ammonia level. Macrocytosis: Secondary to chronic alcohol use.
[2020-10-15] MEDS: Acetaminophen 325 MG TAB PO PRN (20:43)
[2020-10-16] MEDS: Folic Acid 1 MG TAB PO SCH (08:57)
[2020-10-16] MEDS: Cyanocobalamin (Vitamin B-12) 1,000 MCG TAB PO SCH (08:57)
[2020-10-16] MEDS: Thiamine 100 MG TAB PO SCH (08:57)
[2020-10-16] MEDS: Famotidine 20 MG TAB PO SCH ×2 (08:57→20:48)
[2020-10-16] MEDS: Enoxaparin Sodium 40 MG/0.4 ML SYRINGE SC SCH (08:58)
--- NOTE | 2020-10-16 15:21 | PDOC.HOSPP ---
- Subjective Encounter Date: 10/16/20 Subjective: Patient tells me he is doing okay in general. Denies any needs. On exam he does report that his ankles hurt a little bit but otherwise he has no major problems. - Objective Vital Signs & Weight: Vital Signs (12 hours) Temp Pulse Resp BP Pulse Ox 10/16/20 08:03 98.1 F 62 20 138/88 95 10/16/20 08:00 95 Weight Weight 174 lb 2.643 oz I&O: 10/15/20 10/16/20 10/17/20 06:59 06:59 06:59 Intake Total 1330 1420 240 Output Total 775 Balance 555 1420 240 Result Diagrams: 10/13/20 07:00 10/13/20 07:00 Hospitalist ROS - Medication Medications: Active Medications Generic Name Dose Route Start Last Admin Trade Name Freq PRN Reason Stop Dose Admin Acetaminophen 650 mg 10/12/20 20:48 10/15/20 20:43 Acetaminophen 325 Mg Tab PO 650 mg Q4H PRN Administration Headache/Fever Hydrocodone Bitart/Acetaminophen 1 tab 10/13/20 08:04 10/15/20 08:03 Hydrocodone/Acetaminophen 5/325 Mg Tablet PO 1 tab Q4H PRN Administration Moderate Pain (4-6) Cyanocobalamin 1,000 mcg 10/13/20 09:00 10/16/20 08:57 Cyanocobalamin (Vitamin B-12) 1,000 Mcg Tab PO 1,000 mcg DAILY JULIANA Administration Enoxaparin Sodium 40 mg 10/13/20 09:00 10/16/20 08:58 Enoxaparin Sodium 40 Mg/0.4 Ml Syringe SC 40 mg 0900 JULIANA Administration Famotidine 20 mg 10/13/20 09:00 10/16/20 08:57 Famotidine 20 Mg Tab PO 20 mg BID JULIANA Administration Folic Acid 1 mg 10/13/20 09:00 10/16/20 08:57 Folic Acid 1 Mg Tab PO 1 mg DAILY JULIANA Administration Thiamine HCl 100 mg 10/13/20 09:00 10/16/20 08:57 Thiamine 100 Mg Tab PO 100 mg DAILY JULIANA Administration Hospitalist Exam Vitals: Vital Signs (12 hours) Temp Pulse Resp BP Pulse Ox 10/16/20 08:03 98.1 F 62 20 138/88 95 10/16/20 08:00 95 Weight Weight 174 lb 2.643 oz General Appearance: NAD, awake alert Heart: RRR, no murmur, no gallops, no rubs, normal peripheral pulses Respiratory: CTAB, no wheezes, no rales, no ronchi, normal chest expansion, no tachypnea, normal percussion Gastrointestinal: soft, non-tender, non-distended, normal bowel sounds, no palpable masses, no hepatomegaly, no splenomegaly, no bruit Extremities: no cyanosis, no clubbing, no edema Skin: normal turgor Musculoskeletal: generalized weakness Psychiatric: normal affect, normal behavior, A&O x 3 Hosp A/P (1) Lumbar spondylosis with myelopathy Code(s): M47.16 - OTHER SPONDYLOSIS WITH MYELOPATHY, LUMBAR REGION Status: Acute (2) Frequent falls Code(s): R29.6 - REPEATED FALLS Status: Acute (3) Alcohol abuse Code(s): F10.10 - ALCOHOL ABUSE, UNCOMPLICATED Status: Chronic (4) Macrocytosis Code(s): D75.89 - OTHER SPECIFIED DISEASES OF BLOOD AND BLOOD-FORMING ORGANS Status: Chronic (5) Homelessness Code(s): Z59.0 - HOMELESSNESS Status: Acute - Plan Lumbar MRI IMPRESSION: 1) severe lumbar spondylosis, with significant worsening of severe degenerative disc disease at all levels since 05/16/2008 2) grade 1 or 2 spondylolisthesis at L5-S1 due to bilateral L5 spondylolysis. 3) that is associated with very severe bilateral neural foraminal stenosis at L5-S1, somewhat worse since 05/16/2008, causing severe chronic compression of exiting bilateral L5 nerve roots. 4) severe left neural foraminal stenosis at L4-5. Other levels of high-grade neural foraminal stenosis include right L1-2 and left L3-4. 5) at the L4 level, there is a new finding of impingement of left L4 nerve root due to inferiorly migrated disc extrusion from the L3-4 level. 6) scoliosis Thoracic MRI IMPRESSION: 1. Multilevel degenerative changes of the thoracic spine. 2. No abnormal signal intensity throughout the thoracic cord. 3. No significant central canal stenosis or significant neural foraminal narrowing, throughout the thoracic spine. 4. Abnormal T1 marrow signal intensity of the thoracic vertebra. Correlate for senescent change with superpose edema and/or marrow infiltrative process. Lumbar spondylosis with myelopathy: Patient has multiple severe degenerative changes of the lumbar spine causing compromise at multiple nerve roots. Physical therapy reveals the patient has some significant defects in his left lower extremity. Appears to be contributing to some falls although these are likely multifactorial. Neurosurgery consult pending. Frequent falls: Patient has a history of daily alcohol abuse and some history of drug abuse. He has the lumbar myelopathy. 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 All of these could be contributing to the patient's falls. Continue with physical therapy. Neurosurgery consult pending. Alcohol abuse: Patient has a history of daily alcohol use and some history of drug abuse. Continue with vitamin supplementation. To this point patient has not shown signs of withdrawal. On 10/15/2020 patient was a bit somnolent. Ammonia level was normal and his overall affect improved significantly on 10/16/2020. Macrocytosis: Secondary to chronic alcohol use. Disposition: Plan is to place the patient in rehab at discharge. Need to await recommendations from neurosurgery to see if there is any potential definitive interventions that can be entertained.
--- NOTE | 2020-10-16 17:30 | PRG ---
DATE OF SERVICE: 10/16/2020 Mr. Bedoya is a 65-year-old gentleman, admitted to the Hospitalist Service. He underwent a fairly extensive evaluation including imaging of the lumbar spine, which reveals rather significant degenerative spine disease including the lateral recess and foraminal stenosis as well as associated spondylolisthesis. All these findings are chronic in nature and will not require acute neurosurgical intervention. He has multiple other medical comorbidities and is slated to go to inpatient rehab over the next day or two. We have made arrangements to follow him in the outpatient setting. My suspicion is his gait unsteadiness is multifactorial and is related not only to spine pathology, but to his underlying alcoholism and what is likely avascular necrosis. Job ID: [id number]
[2020-10-16] MEDS: Acetaminophen 325 MG TAB PO PRN (20:48)
[2020-10-17] MEDS: Enoxaparin Sodium 40 MG/0.4 ML SYRINGE SC SCH (08:03)
[2020-10-17] MEDS: Famotidine 20 MG TAB PO SCH (08:03)
[2020-10-17] MEDS: Cyanocobalamin (Vitamin B-12) 1,000 MCG TAB PO SCH (08:03)
[2020-10-17] MEDS: Folic Acid 1 MG TAB PO SCH (08:03)
[2020-10-17] MEDS: Thiamine 100 MG TAB PO SCH (08:03)
--- NOTE | 2020-10-17 14:11 | RAD ---
LEFT HIP TWO VIEWS: History: Concern for avascular necrosis. FINDINGS: There is some sclerotic bony changes seen within the femoral head. This could represent early changes of avascular necrosis. There is no flattening to the normal spherical curvature of the femoral head. Mild joint space narrowing is seen. IMPRESSION: Sclerotic change of the femoral head. This could indicate early osteonecrosis. POS: OFF
--- NOTE | 2020-10-17 14:12 | RAD ---
RIGHT HIP TWO VIEWS: History: Concern for avascular necrosis FINDINGS: There are some mild arthritic changes of the hip joint. There are sclerotic bony changes seen within the femoral head which still maintains a normal spherical shape. IMPRESSION: Mixed sclerotic changes of the femoral head. This does raise the possibility of early changes of avas cular necrosis. POS: OFF
[2020-10-17 18:04] VITALS: BP 161/81; TEMP 97.7
--- NOTE | 2020-10-18 14:08 | PDOC.DS.DS ---
Provider Date of Admission: 10/14/20 14:10 Date of Discharge: 10/17/20 Admitting Provider: Haresh Arevalo MD Consultations: Neurosurgery Primary Care Physician: Warren Gay MD Course Hospital Course: Lumbar MRI IMPRESSION: 1) severe lumbar spondylosis, with significant worsening of severe degenerative disc disease at all levels since 05/16/2008 2) grade 1 or 2 spondylolisthesis at L5-S1 due to bilateral L5 spondylolysis. 3) that is associated with very severe bilateral neural foraminal stenosis at L5-S1, somewhat worse since 05/16/2008, causing severe chronic compression of exiting bilateral L5 nerve roots. 4) severe left neural foraminal stenosis at L4-5. Other levels of high-grade ne ural foraminal stenosis include right L1-2 and left L3-4. 5) at the L4 level, there is a new finding of impingement of left L4 nerve root due to inferiorly migrated disc extrusion from the L3-4 level. 6) scoliosis Thoracic MRI IMPRESSION: 1. Multilevel degenerative changes of the thoracic spine. 2. No abnormal signal intensity throughout the thoracic cord. 3. No significant central canal stenosis or significant neural foraminal narrowing, throughout the thoracic spine. 4. Abnormal T1 marrow signal intensity of the thoracic vertebra. Correlate for senescent change with superpose edema and/or marrow infiltrative process. Lumbar spondylosis with myelopathy: Patient has multiple severe degenerative changes of the lumbar spine causing compromise at multiple nerve roots. Physical therapy reveals the patient has some significant defects in his left lower extremity. Appears to be contributing to some falls although these are likely multifactorial. Neurosurgery consult was cussed with Dr. Duke. It was felt that the patient would need to get the benefit of some therapy and stay off alcohol for a while before he would be a good surgical candidate. Plan was for the patient to ultimately follow-up as an outpatient. Frequent falls: Patient has a history of daily alcohol abuse and some history of drug abuse. He has the lumbar myelopathy. 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 All of these could be contributing to the patient's falls. Continue with physical therapy. Neurosurgery consult pending. Alcohol abuse: Patient has a history of daily alcohol use and some history of drug abuse. Continue with vitamin supplementation. To this point patient has not shown signs of withdrawal. On 10/15/2020 patient was a bit somnolent. Ammonia level was normal and his overall affect improved significantly on 10/16/2020. Macrocytosis: Secondary to chronic alcohol use. Continue vitamin supplementation Disposition: Patient was ultimately accepted by Dr. Hutchison to inpatient rehab. Patient had a history of a scan indicating possible avascular necrosis of the hips. Dr. Hobbs requested plain films prior to the patient transferring to their facility. These were ordered. Resuscitation Status: 10/13/20 08:06 Resuscitation Status Routine Resuscitation Status: FULL: Full Resuscitation Lab Results: 10/13/20 07:00 10/13/20 07:00 Microbiology - Entire Visit 10/13/20 17:20 Urine voided Urine Culture - Final NO GROWTH AT 48 HOURS Vitals: Weight Weight 174 lb 2.643 oz Physical Exam: The patient was seen and examined on the day of discharge. General Appearance: NAD, awake alert Eye: PERRL, anicteric sclera Respiratory: CTAB, no wheezes, no rales, no ronchi Cardiovascular: RRR, no murmur, no gallops, no rubs Gastrointestinal: soft, non-tender, non-distended, normal bowel sounds, no palpable masses Extremities: no cyanosis, no clubbing, no edema Skin: normal turgor Neurological: no focal deficits Musculoskeletal: normal tone, normal strength, no muscle wasting PSYCH: normal affect, normal behavior, A&O x 3 Problem (1) Lumbar spondylosis with myelopathy Code(s): M47.16 - OTHER SPONDYLOSIS WITH MYELOPATHY, LUMBAR REGION Status: Acute (2) Frequent falls Code(s): R29.6 - REPEATED FALLS Status: Acute (3) Alcohol abuse Code(s): F10.10 - ALCOHOL ABUSE, UNCOMPLICATED Status: Chronic (4) Macrocytosis Code(s): D75.89 - OTHER SPECIFIED DISEASES OF BLOOD AND BLOOD-FORMING ORGANS Status: Chronic (5) Homelessness Code(s): Z59.0 - HOMELESSNESS Status: Acute Plan Prescriptions: Folic Acid [Folvite] 1 mg PO DAILY #30 tab Famotidine [Pepcid] 20 mg PO BID #60 tab Thiamine 100 mg PO DAILY #30 tab Acetaminophen [Tylenol Extra Strength] 500 mg PO Q6H PRN #60 tab PRN Reason: Mild Pain (1-3) Cyanocobalamin (Vitamin B-12) [Vitamin B-12] 1,000 mcg PO DAILY #30 tab Home Medications: Medication Instructions Recorded Confirmed Type Acetaminophen [Tylenol Extra 500 mg PO Q6H PRN #60 tab 10/13/20 Rx Strength] Cyanocobalamin (Vitamin B-12) 1,000 mcg PO DAILY #30 tab 10/13/20 Rx [Vitamin B-12] Famotidine [Pepcid] 20 mg PO BID #60 tab 10/13/20 Rx Folic Acid [Folvite] 1 mg PO DAILY #30 tab 10/13/20 Rx Thiamine 100 mg PO DAILY #30 tab 10/13/20 Rx Allergies: No Known Allergies Allergy (Verified 10/13/20 00:05) Activity:: Activity as Tolerated Nourishment:: Regular Diet Therapies:: Occupational Therapy, Physical Therapy Equipment/Supplies:: Not Applicable IV Therapy:: Not Applicable Referrals: Warren Gay MD [Primary Care Provider] - (AFTER D/C FROM REHAB ) Breezy Duke MD [Active] - (AFTER D/C FROM REHAB) Disposition: REHABILITATION INPATIENT Quality CORE MEASURES:: N/A
--- NOTE | 2020-10-18 22:28 | EKG ---
Test Reason : Blood Pressure : / mmHG Vent. Rate : 077 BPM Atrial Rate : 077 BPM P-R Int : 124 ms QRS Dur : 100 ms QT Int : 400 ms P-R-T Axes : 066 060 056 degrees QTc Int : 452 ms Normal sinus rhythm Normal ECG Confirmed by EUGENE SPAULDING DO ([id number]), film or videotape editor IDALIA GRANADO ([id number]) on 10/18/2020 10:28:19 PM Referred By: Confirmed By:EUGENE SPAULDING DO
--- NOTE | 2020-10-20 05:26 | PQF ---
CLINICAL DOCUMENTATION CLARIFICATION FORM: Dear DrJosé Miguel: Renzo Zapien Date / Time:10/20/20 05:25 Please exercise your independent, professional judgment in responding to the clarification form. Clinical indicators are provided on the bottom of this form for your review Please check appropriate box(es): [ x ] Encephalopathy: Etiology: [x ] Metabolic [ ] Toxic [ ] Unspecified [ ] Other (please specify) [ ] Transient Alteration of Awareness [ ] Other diagnosis, please specify [ ] Unable to determine Physician Signature: Date/Time: For continuity of documentation, please document condition throughout progress notes and discharge summary. Thank You To be completed by CDI/Coding staff for physician review: Present Clinical Indicators - Signs / Symptoms / Labs Results and Location in Medical Record [x] patient is confused ED Notes 10/14 [x] Altered mental status Consult 10/13 [x] CT of brain: No evidence of acute intracranial abnormality CT of brain 10/12 [x] UDS was positive for benzodiazepine HP 10/12 [x] patient is alert and oriented to person and place but not time or year Consult 10/13 [x] Patient was somnolent HP 10/15 Present Risk Factors Results and Location in Medical Record [x] s/p fall HP 10/12 [x] 65 years old male HP 10/12 [x] HTN HP 10/12 [x] Alcoholism HP 10/12 [x] Smoker HP 10/12 Present[x] Treatments Results and Location in Medical Record [x] Neuro check Consult 10/13 [x] IVF NOV 10 [x] Thiamine 100mg Oral NOV 10 [x] Neuro Consult Consult 10/13 CDS/Breakfast Server Signature: Reva Bond Phone #: [phone] Date/Time: 10/20/20 This is a permanent part of the Medical Record [facility]
== END 2020-10-17 19:15 | DRG 551 ==
LOC: ERS 15:57 → T4-A 20:02 → OBSVTOIN 10-14 14:10
PROVIDERS: ADMIT Student in an Organized Health Care Education/Training Program; ATTEND Internal Medicine
DX: M47.16 Other spondylosis with myelopathy, lumbar region (principal); G93.41 Metabolic encephalopathy; M51.06 Intervertebral disc disorders with myelopathy, lumbar region; Z23 Encounter for immunization; Z20.822 Contact with and (suspected) exposure to COVID-19; M87.851 Other osteonecrosis, right femur; M87.852 Other osteonecrosis, left femur; G89.29 Other chronic pain; F10.20 Alcohol dependence, uncomplicated; K21.9 Gastro-esophageal reflux disease without esophagitis; I10 Essential (primary) hypertension; R29.6 Repeated falls; F17.210 Nicotine dependence, cigarettes, uncomplicated; D75.89 Other specified diseases of blood and blood-forming organs; F19.10 Other psychoactive substance abuse, uncomplicated; M48.061 Spinal stenosis, lumbar region without neurogenic claudication; M43.17 Spondylolisthesis, lumbosacral region; M41.9 Scoliosis, unspecified; Z59.0 Homelessness
CPT/HCPCS: 36415; 51701; 70450; 70551; 72125; 72157; 72158; 80048; 80053; 80306; 80307; 81003; 81015; 82140; 82550; 82607; 82746; 84425; 85025; 86780; 87086; 87635; 90471; 90662; 90732; 93005; 95712; 95816; 95819; 95957; 96365; 96366; 96372; A9579; G0008; G0009; G0378; J1650; J3411; J7042; U0003; U0005

== ENCOUNTER 2020-11-11 19:24 | Emergency (ER) | payer OTHER ==
--- NOTE | 2020-11-11 21:00 | CT ---
CT BRAIN WITHOUT CONTRAST: HISTORY:Trauma, headache COMPARISON:10/12/2020 FINDINGS: There are foci of decreased attenuation in the subcortical and periventricular white matter, consiste nt with chronic small vessel ischemic disease. Cortical atrophy is stable. No evidence of acute infarct, hemorrhage, midline shift or abnormal extra-axial fluid collections is seen. The ventricular size is stable and the basilar cisterns are patent. The bony calvarium is intact. There is an old fracture of the left zygomatic arch. The visualized paranasal sinuses and mastoid air cells are well aerated. IMPRESSION: No CT evidence of acute intracranial process.
== END 2020-11-11 22:18 | disposition home or self-care (01) ==
LOC: ERS 19:24
DX: M25.562 Pain in left knee (principal); K21.9 Gastro-esophageal reflux disease without esophagitis; I10 Essential (primary) hypertension; F17.210 Nicotine dependence, cigarettes, uncomplicated
CPT/HCPCS: 70450

== ENCOUNTER 2020-11-18 15:38 | Emergency (ER) | payer OTHER ==
[2020-11-18 16:18] LABS: #Basophils 0.1 thou/uL (0.0-0.2); #Eosinphils 0.4 thou/uL (0.0-0.7); #Lymphocytes 3.1 thou/uL (1.20-3.40); #Neutrophils 6.8 thou/uL (1.40-6.50); %Eosinophils 3.5 % (0.0-10.0); %Lymphocytes 27.4 % (21.0-51.0); %Monocytes 8.7 % (0.0-10.0); %Neutrophils 59.5 % (42.0-75.0); Hemoglobin 14.4 g/dL (14.0-18.0); Mean Corpuscular HGB CONC 33.5 g/dL (32.0-36.0); Mean Corpuscular Hemoglobin 33.6 pg (27.0-31.0); Mean Platelet Volume 6.5 fL (7.4-10.4); Platelet Count 273 thou/uL (130-400); RBC Distribution Width 12.1 % (11.5-14.5); Red Blood Cell (RBC) Count 4.27 mill/uL (4.70-6.10); White Blood Cell (WBC) Count 11.4 thou/uL (4.8-10.8)
[2020-11-18 16:38] LABS: Amphetamine Not Detected (NotDetected); Barbiturates Screen Not Detected (NotDetected); Benzodiazepine Screen Not Detected (NotDetected); Cocaine Metabolite Screen Not Detected (NotDetected); Medtox Control Line Valid? VALID (VALID); Medtox Reader # READER 1; Methadone Not Detected (NotDetected); Methamphetamine Not Detected (NotDetected); Opiate Screen Not Detected (NotDetected); Oxycodone Screen Not Detected (NotDetected); Phencyclidine (PCP) Not Detected (NotDetected); THC/Cannabinoid Screen Not Detected (NotDetected); Tricyclic Screen Not Detected (NotDetected)
[2020-11-18 16:38] LABS: Acetaminophen Less than 6.0 mcg/mL (10.0-30.0); Alcohol 224 mg/dL (Less than 10); CK (CPK) 134 U/L (30-200); Salicylate Less than 8.0 mg/dL (15.0-30.0)
[2020-11-18 16:42] LABS: ALT (SGPT) 14 U/L (8-55); AST (SGOT) 24 U/L (5-34); Albumin 3.6 g/dL (3.4-4.8); Alkaline Phosphatase 66 U/L (40-110); Anion Gap 16 mmol/L (10-20); BUN (Urea Nitrogen) 9 mg/dL (8.4-25.7); Bilirubin, Total 0.2 mg/dL (0.2-1.2); Calc. Creatinine Clearance 0 mL/min (70-130); Calcium 8.7 mg/dL (7.8-10.44); Carbon Dioxide 23 mmol/L (23-31); Chloride 103 mmol/L (98-107); Glucose 82 mg/dL (80-115); Potassium 3.6 mmol/L (3.5-5.1); Protein, Total 6.6 g/dL (5.8-8.1); Sodium 138 mmol/L (136-145)
== END 2020-11-18 23:31 | disposition home or self-care (01) ==
LOC: ERS 15:38
DX: F10.129 Alcohol abuse with intoxication, unspecified (principal); R53.81 Other malaise; I10 Essential (primary) hypertension; K21.9 Gastro-esophageal reflux disease without esophagitis; F17.210 Nicotine dependence, cigarettes, uncomplicated; Y90.4 Blood alcohol level of 80-99 mg/100 ml
CPT/HCPCS: 36415; 70450; 71045; 80053; 80306; 80307; 82550; 85025; 93005

== ENCOUNTER 2020-11-21 18:37 | Emergency (ER) | payer OTHER | END 2020-11-21 20:41 | disposition home or self-care (01) | LOC: ERS 18:37 | DX: S09.90XA Unspecified injury of head, initial encounter (principal); S83.92XA Sprain of unspecified site of left knee, initial encounter; F10.129 Alcohol abuse with intoxication, unspecified; F17.210 Nicotine dependence, cigarettes, uncomplicated; I10 Essential (primary) hypertension; W01.10XA Fall on same level from slipping, tripping and stumbling with subsequent striking against unspecified object, initial encounter | CPT/HCPCS: 36416; 70450 ==

== ENCOUNTER 2023-02-06 14:24 | Inpatient (IN) | payer MEDICARE, MEDICAID ==
[~2023-02-06 14:24] MED LIST: Iopamidol-370 76% 500 ML MDV (1 ML CHARGE) ONE
[2023-02-06] MEDS ORDERED: Thiamine HCl 200 MG/2 ML VIAL SLOW IVP SCH (15:45)
[2023-02-06] MEDS ORDERED: Thiamine HCl 100 MG, Folic Acid 1 MG in Dextrose 5 %-0.45 % NaCl 1,000 ML IVPB SCH ×2 (15:45)
[2023-02-06] MEDS ORDERED: Folic Acid 1 MG, Multivitamins, Adult 10 ML in Dextrose 5 %-0.45 % NaCl 1,000 ML IV SCH (15:45)
[2023-02-06] MEDS ORDERED: Morphine 4 MG/ML VIAL ONE (15:51)
[2023-02-06] MEDS ORDERED: Ondansetron PF 4 MG/2 ML Vial ONE (15:51)
[2023-02-06 15:54] LABS: #Basophils 0.1 thou/uL (0.0-0.2); #Eosinphils 0.2 thou/uL (0.0-0.7); #Monocytes 2.4 thou/uL (0.11-0.59); #Neutrophils 13.9 thou/uL (1.40-6.50); %Basophils 0.3 % (0.0-1.0); %Lymphocytes 10.3 % (21.0-51.0); %Neutrophils 74.9 % (42.0-75.0); Mean Corpuscular HGB CONC 32.4 g/dL (32.0-36.0); Mean Corpuscular Hemoglobin 29.3 pg (27.0-31.0); Mean Corpuscular Volume 90.3 fl (78.0-98.0); Mean Platelet Volume 8.9 fL (7.4-10.4); Platelet Count 310 10x3/uL (130-400); RBC Distribution Width 15.4 % (11.5-14.5); Red Blood Cell (RBC) Count 4.44 mill/uL (4.70-6.10); White Blood Cell (WBC) Count 18.5 10x3/uL (4.8-10.8)
[2023-02-06 15:58] LABS: Actual Bicarbonate (HCO3v) 27.2 mEq/L (22-28); Base Excess 2.3 mEq/L (-2.0 to +3.0); Calcium, Ionized (venous) 1.11 mmol/L (1.16-1.32); Chloride (VBG) 101 mmol/L (98-106); Hematocrit-VBG 42 % (42.0-52.0); Hemoglobin (Hb) 14.2 g/dL (12.6-17.4); Potassium (VBG) 4.35 mmol/L (3.70-5.30); Sodium 133.7 mmol/L (133-146); pH (venous) 7.417 (7.32-7.43)
[2023-02-06] MEDS ORDERED: THIAMINE HCL IVPB SCH (16:15)
[2023-02-06] MEDS ORDERED: FOLIC ACID IVPB SCH (16:15)
[2023-02-06] MEDS ORDERED: [UNRECOGNIZED DRUG - OTHER] IVPB SCH (16:15)
[2023-02-06] MEDS ORDERED: MULTIVITAMINS IVPB SCH (16:15)
[2023-02-06 16:19] LABS: ALT (SGPT) 10 U/L (8-55); AST (SGOT) 45 U/L (5-34); Albumin 3.1 g/dL (3.4-4.8); Alkaline Phosphatase 111 U/L (40-110); Anion Gap 13 mmol/L (10-20); BUN (Urea Nitrogen) 11 mg/dL (8.4-25.7); Bilirubin, Total 0.8 mg/dL (0.2-1.2); Calc. Creatinine Clearance 0 mL/min (70-130); Calcium 8.8 mg/dL (7.8-10.44); Carbon Dioxide 25 mmol/L (23-31); Chloride 102 mmol/L (98-107); Estimated GFR 103; Glucose 96 mg/dL (80-115); Lipase 9 U/L (8-78); Potassium 4.5 mmol/L (3.5-5.1); Protein, Total 6.1 g/dL (5.8-8.1); Sodium 135 mmol/L (136-145)
[2023-02-06 16:20] LABS: Acetaminophen Less than 10 mcg/mL (10.0-30.0); Alcohol Less than 10.0 mg/dL (Less than 10); CK (CPK) 57 U/L (30-200); Magnesium 1.8 mg/dL (1.6-2.6); Salicylate Less than 8.0 mg/dL (15.0-30.0)
[2023-02-06] MEDS ORDERED: Lorazepam 2 MG/ML VIAL IM PRN (21:51)
[2023-02-06] MEDS ORDERED: Lorazepam 1 MG TAB PO PRN (21:51)
[2023-02-06] MEDS ORDERED: Electrolyte Replacement Protocol 1 EACH FS SCH (22:00)
[2023-02-06] MEDS ORDERED: Piperacillin/Tazobactam 3.375 GM in Sodium Chloride 0.9% 100 ML IVPB SCH (22:00)
[2023-02-06] MEDS: Thiamine HCl 200 MG/2 ML VIAL SLOW IVP SCH (23:15)
[2023-02-06] MEDS ORDERED: Piperacillin/Tazobactam 3.375 GM VIAL ONE (23:19)
[2023-02-07] MEDS: Piperacillin/Tazobactam 3.375 GM in Sodium Chloride 0.9% 100 ML IVPB SCH ×3 (02:25→18:26)
[2023-02-07] MEDS ORDERED: Piperacillin/Tazobactam 3.375 GM VIAL ONE (02:27)
[2023-02-07 03:59] VITALS: BMI 23.5
[2023-02-07] MEDS ORDERED: Ipratropium/Albuterol 3 ML NEB EZPAP PRN (04:34)
[2023-02-07] MEDS ORDERED: Magnesium 2 GM/50 ML(in water) 2 GM in Premix Bag 1 BAG IVPB SCH (05:00)
[2023-02-07 05:44] LABS: Bacteria/HPF None Seen HPF (None Seen); Bilirubin Negative (Negative); Blood, Urine Negative (Negative); CAUTI Indications for Culture Dysuria,urgency,freq; Clarity Clear (Clear); Glucose, Urine (Dipstick) Normal (Negative); Ketone, Urine Negative (Negative); Leukocyte Negative Leu/uL (Negative); Nitrite Negative (Negative); Protein, Urine (Dipstick) Negative (Neg-Trace); RBC/HPF 0-3 HPF (0-3); Specific Gravity, Urine 1.025 (1.002-1.036); Squamous Epithelial 0-3 HPF (0-3); Urobilinogen 3 mg/dL (Less than 2); WBC/HPF 0-3 HPF (0-3)
[2023-02-07 05:46] LABS: Urine Culture Reflex No No
[2023-02-07 05:53] LABS: Amphetamine Not Detected (NotDetected); Barbiturates Screen Not Detected (NotDetected); Benzodiazepine Screen Not Detected (NotDetected); Cocaine Metabolite Screen Detected (NotDetected); Methadone Not Detected (NotDetected); Methamphetamine Not Detected (NotDetected); Opiate Screen Detected (NotDetected); Oxycodone Screen Not Detected (NotDetected); Phencyclidine (PCP) Not Detected (NotDetected); THC/Cannabinoid Screen Not Detected (NotDetected); Tricyclic Screen Not Detected (NotDetected)
[2023-02-07 06:11] LABS: #Basophils 0.1 thou/uL (0.0-0.2); #Eosinphils 0.4 thou/uL (0.0-0.7); #Neutrophils 11.9 thou/uL (1.40-6.50); %Basophils 0.4 % (0.0-1.0); %Eosinophils 2.3 % (0.0-10.0); %Lymphocytes 12.9 % (21.0-51.0); %Monocytes 12.3 % (0.0-10.0); %Neutrophils 71.6 % (42.0-75.0); Hemoglobin 12.1 g/dL (14.0-18.0); Mean Corpuscular HGB CONC 31.5 g/dL (32.0-36.0); Mean Corpuscular Hemoglobin 29.2 pg (27.0-31.0); Mean Corpuscular Volume 92.8 fl (78.0-98.0); Mean Platelet Volume 9.3 fL (7.4-10.4); Platelet Count 322 10x3/uL (130-400); RBC Distribution Width 15.6 % (11.5-14.5); Red Blood Cell (RBC) Count 4.14 mill/uL (4.70-6.10); White Blood Cell (WBC) Count 16.6 10x3/uL (4.8-10.8)
[2023-02-07 06:30] LABS: Phosphorus 3.5 mg/dL (2.3-4.7)
[2023-02-07 06:38] LABS: ALT (SGPT) 10 U/L (8-55); AST (SGOT) 40 U/L (5-34); Albumin 2.8 g/dL (3.4-4.8); Alkaline Phosphatase 101 U/L (40-110); Anion Gap 12 mmol/L (10-20); BUN (Urea Nitrogen) 11 mg/dL (8.4-25.7); Bilirubin, Total 0.4 mg/dL (0.2-1.2); Calc. Creatinine Clearance 108 mL/min (70-130); Calcium 8.7 mg/dL (7.8-10.44); Carbon Dioxide 23 mmol/L (23-31); Chloride 102 mmol/L (98-107); Estimated GFR 105; Globulin 3.1 g/dL (2.4-3.5); Glucose 99 mg/dL (80-115); Magnesium 1.6 mg/dL (1.6-2.6); Potassium 4.2 mmol/L (3.5-5.1); Protein, Total 5.9 g/dL (5.8-8.1); Sodium 133 mmol/L (136-145)
[2023-02-07] MEDS: Multivit, Therapeutic 1 TAB PO SCH (09:39)
[2023-02-07] MEDS: Folic Acid 1 MG TAB PO SCH (09:39)
[2023-02-07] MEDS: Lisinopril 20 MG TAB PO SCH (09:39)
[2023-02-07 09:49] LABS: HBCM Index 0.06 S/CO (0-0.79); HBSAg Index 0.18 S/CO (0-0.99); Hep A IgM AB Non-Reactive S/CO (NonReactive); Hep A IgM S/CO 0.32 S/CO (0-0.79); Hep B Surf Ag Non-Reactive S/CO (NonReactive); Hepatitis B Core IgM Abs Non-Reactive S/CO (NonReactive)
[2023-02-07 09:56] LABS: Hep C IgG Ab Reflex HepC Qnt S/CO (NonReactive); Hep C Index 11.76 S/CO (0-0.79)
[2023-02-07] MEDS: Tamsulosin HCl 0.4 MG CAP PO SCH (20:42)
[2023-02-07] MEDS: Thiamine HCl 200 MG/2 ML VIAL SLOW IVP SCH (20:43)
[2023-02-07] MEDS ORDERED: Lorazepam 1 MG TAB PO PRN (21:51)
[2023-02-08] MEDS: Piperacillin/Tazobactam 3.375 GM in Sodium Chloride 0.9% 100 ML IVPB SCH ×3 (02:59→18:30)
[2023-02-08 05:23] LABS: #Basophils 0.1 thou/uL (0.0-0.2); #Eosinphils 0.4 thou/uL (0.0-0.7); #Monocytes 2.3 thou/uL (0.11-0.59); %Basophils 0.3 % (0.0-1.0); %Eosinophils 2.3 % (0.0-10.0); %Lymphocytes 11.7 % (21.0-51.0); %Monocytes 13.5 % (0.0-10.0); %Neutrophils 71.8 % (42.0-75.0); Mean Corpuscular Volume 90.6 fl (78.0-98.0); Mean Platelet Volume 9.4 fL (7.4-10.4); Platelet Count 387 10x3/uL (130-400); RBC Distribution Width 15.2 % (11.5-14.5); Red Blood Cell (RBC) Count 4.48 mill/uL (4.70-6.10); White Blood Cell (WBC) Count 16.8 10x3/uL (4.8-10.8)
[2023-02-08 05:49] LABS: ALT (SGPT) 11 U/L (8-55); AST (SGOT) 39 U/L (5-34); Alkaline Phosphatase 108 U/L (40-110); Anion Gap 12 mmol/L (10-20); BUN (Urea Nitrogen) 8 mg/dL (8.4-25.7); Bilirubin, Total 0.3 mg/dL (0.2-1.2); Calc. Creatinine Clearance 103 mL/min (70-130); Calcium 9.4 mg/dL (7.8-10.44); Carbon Dioxide 26 mmol/L (23-31); Chloride 99 mmol/L (98-107); Estimated GFR 103; Globulin 3.4 g/dL (2.4-3.5); Glucose 88 mg/dL (80-115); Magnesium 1.6 mg/dL (1.6-2.6); Potassium 4.2 mmol/L (3.5-5.1); Protein, Total 6.4 g/dL (5.8-8.1); Sodium 133 mmol/L (136-145)
[2023-02-08] MEDS ORDERED: Magnesium 2 GM/50 ML(in water) 2 GM in Premix Bag 1 BAG IVPB SCH (08:00)
[2023-02-08] MEDS: Multivit, Therapeutic 1 TAB PO SCH (10:12)
[2023-02-08] MEDS: Folic Acid 1 MG TAB PO SCH (10:12)
[2023-02-08] MEDS: Lisinopril 20 MG TAB PO SCH (10:12)
[2023-02-08 17:00] LABS: INR-International Normal Ratio 1.1; Prothrombin Time 14.3 sec (12.0-14.7)
[2023-02-08] MEDS: Thiamine HCl 200 MG/2 ML VIAL SLOW IVP SCH (20:51)
[2023-02-08] MEDS: Tamsulosin HCl 0.4 MG CAP PO SCH (20:52)
[2023-02-08] MEDS: Acetaminophen 325 MG TAB PO PRN (20:55)
[2023-02-08] MEDS ORDERED: Lorazepam 1 MG TAB PO PRN (21:51)
[2023-02-09] MEDS: Piperacillin/Tazobactam 3.375 GM in Sodium Chloride 0.9% 100 ML IVPB SCH ×3 (02:52→17:25)
[2023-02-09 06:08] LABS: #Basophils 0.1 thou/uL (0.0-0.2); #Eosinphils 0.7 thou/uL (0.0-0.7); #Monocytes 2.4 thou/uL (0.11-0.59); #Neutrophils 12.7 thou/uL (1.40-6.50); %Basophils 0.4 % (0.0-1.0); %Eosinophils 3.6 % (0.0-10.0); %Lymphocytes 11.8 % (21.0-51.0); %Monocytes 13.4 % (0.0-10.0); %Neutrophils 70.3 % (42.0-75.0); Hemoglobin 13.5 g/dL (14.0-18.0); Mean Corpuscular HGB CONC 31.9 g/dL (32.0-36.0); Mean Corpuscular Hemoglobin 29.3 pg (27.0-31.0); Mean Corpuscular Volume 91.8 fl (78.0-98.0); Mean Platelet Volume 9.1 fL (7.4-10.4); Platelet Count 416 10x3/uL (130-400); RBC Distribution Width 15.5 % (11.5-14.5); Red Blood Cell (RBC) Count 4.61 mill/uL (4.70-6.10); White Blood Cell (WBC) Count 18.1 10x3/uL (4.8-10.8)
[2023-02-09 06:29] LABS: ALT (SGPT) 11 U/L (8-55); AST (SGOT) 41 U/L (5-34); Albumin 3.3 g/dL (3.4-4.8); Alkaline Phosphatase 110 U/L (40-110); Anion Gap 14 mmol/L (10-20); BUN (Urea Nitrogen) 11 mg/dL (8.4-25.7); Bilirubin, Total 0.3 mg/dL (0.2-1.2); Calc. Creatinine Clearance 88 mL/min (70-130); Calcium 9.8 mg/dL (7.8-10.44); Carbon Dioxide 26 mmol/L (23-31); Chloride 102 mmol/L (98-107); Estimated GFR 99; Globulin 3.7 g/dL (2.4-3.5); Glucose 94 mg/dL (80-115); Magnesium 1.8 mg/dL (1.6-2.6); Potassium 4.4 mmol/L (3.5-5.1); Sodium 138 mmol/L (136-145)
[2023-02-09 06:47] LABS: HIV (1/2) Antibody/Antigen Non-Reactive (NonReactive); HIV 1/2 INDEX 0.16 S/CO (<1.00)
[2023-02-09] MEDS ORDERED: Magnesium 2 GM/50 ML(in water) 2 GM in Premix Bag 1 BAG IVPB SCH (08:00)
[2023-02-09] MEDS: Multivit, Therapeutic 1 TAB PO SCH (09:53)
[2023-02-09] MEDS: Lisinopril 20 MG TAB PO SCH (09:53)
[2023-02-09] MEDS: Folic Acid 1 MG TAB PO SCH (09:53)
[2023-02-09] MEDS: Mag-Al 1200 mg/1200 mg/30 ML UDCUP PO PRN (17:28)
[2023-02-09] MEDS: Ondansetron PF 4 MG/2 ML Vial IVP PRN (17:28)
[2023-02-09] MEDS: Thiamine 100 MG TAB PO SCH (21:11)
[2023-02-09] MEDS: Tamsulosin HCl 0.4 MG CAP PO SCH (21:11)
[2023-02-10 00:36] LABS: HCV RNA, log10 6.004 (.); Hep C PCR-Quant 1010000 IU/mL (.)
[2023-02-10] MEDS: Piperacillin/Tazobactam 3.375 GM in Sodium Chloride 0.9% 100 ML IVPB SCH ×3 (01:54→17:47)
[2023-02-10] MEDS ORDERED: fentaNYL 50 mcg/mL 1 mL Vial ONE (07:49)
[2023-02-10] MEDS ORDERED: Sodium Bicarbonate 2.5 MEQ/5 ML VIAL ONE (07:50)
[2023-02-10] MEDS ORDERED: Midazolam HCl 2 mg/2 ml Vial ONE (07:50)
[2023-02-10] MEDS: Multivit, Therapeutic 1 TAB PO SCH (11:03)
[2023-02-10] MEDS: Folic Acid 1 MG TAB PO SCH (11:03)
[2023-02-10] MEDS: Lisinopril 20 MG TAB PO SCH (11:03)
[2023-02-10] MEDS: Tamsulosin HCl 0.4 MG CAP PO SCH (20:11)
[2023-02-10] MEDS: Acetaminophen 325 MG TAB PO PRN (20:30)
[2023-02-10] MEDS: Thiamine 100 MG TAB PO SCH (21:43)
[2023-02-10] MEDS ORDERED: Morphine 4 MG/ML VIAL SLOW IVP SCH (23:59)
[2023-02-11] MEDS: Piperacillin/Tazobactam 3.375 GM in Sodium Chloride 0.9% 100 ML IVPB SCH ×3 (03:07→18:21)
[2023-02-11] MEDS: Acetaminophen 325 MG TAB PO PRN (10:19)
[2023-02-11] MEDS: Multivit, Therapeutic 1 TAB PO SCH (10:20)
[2023-02-11] MEDS: Folic Acid 1 MG TAB PO SCH (10:21)
[2023-02-11] MEDS: Lisinopril 20 MG TAB PO SCH (10:21)
[2023-02-11] MEDS: Morphine 2 MG/ML VIAL SLOW IVP PRN (11:38)
[2023-02-11] MEDS: Tamsulosin HCl 0.4 MG CAP PO SCH (21:05)
[2023-02-11] MEDS: Thiamine 100 MG TAB PO SCH (21:05)
[2023-02-12] MEDS: Piperacillin/Tazobactam 3.375 GM in Sodium Chloride 0.9% 100 ML IVPB SCH ×3 (03:35→17:23)
[2023-02-12] MEDS: Lisinopril 20 MG TAB PO SCH (09:29)
[2023-02-12] MEDS: Multivit, Therapeutic 1 TAB PO SCH (09:29)
[2023-02-12] MEDS: Folic Acid 1 MG TAB PO SCH (09:29)
[2023-02-12] MEDS: Morphine 2 MG/ML VIAL SLOW IVP PRN (09:33)
[2023-02-12] MEDS: Acetaminophen 325 MG TAB PO PRN (12:17)
[2023-02-12] MEDS: Tamsulosin HCl 0.4 MG CAP PO SCH (20:18)
[2023-02-12] MEDS: Thiamine 100 MG TAB PO SCH (21:11)
[2023-02-13] MEDS: Piperacillin/Tazobactam 3.375 GM in Sodium Chloride 0.9% 100 ML IVPB SCH ×3 (02:08→17:11)
[2023-02-13] MEDS: Morphine 2 MG/ML VIAL SLOW IVP PRN ×3 (02:13→21:09)
[2023-02-13] MEDS: Lisinopril 20 MG TAB PO SCH (08:23)
[2023-02-13] MEDS: Multivit, Therapeutic 1 TAB PO SCH (08:23)
[2023-02-13] MEDS: Folic Acid 1 MG TAB PO SCH (08:23)
[2023-02-13] MEDS: Thiamine 100 MG TAB PO SCH (21:08)
[2023-02-13] MEDS: Tamsulosin HCl 0.4 MG CAP PO SCH (21:08)
[2023-02-14] MEDS: Piperacillin/Tazobactam 3.375 GM in Sodium Chloride 0.9% 100 ML IVPB SCH ×3 (02:26→18:03)
[2023-02-14] MEDS: Multivit, Therapeutic 1 TAB PO SCH (09:34)
[2023-02-14] MEDS: Lisinopril 20 MG TAB PO SCH (09:34)
[2023-02-14] MEDS: Folic Acid 1 MG TAB PO SCH (09:34)
[2023-02-14 16:06] LABS: Troponin I Less than 0.010 ng/mL (< 0.028)
[2023-02-14] MEDS: Thiamine 100 MG TAB PO SCH (20:06)
[2023-02-14] MEDS: Tamsulosin HCl 0.4 MG CAP PO SCH (20:06)
[2023-02-14] MEDS: Ondansetron PF 4 MG/2 ML Vial IVP PRN (20:08)
[2023-02-14] MEDS: Mag-Al 1200 mg/1200 mg/30 ML UDCUP PO PRN (21:48)
[2023-02-14] MEDS: Morphine 2 MG/ML VIAL SLOW IVP PRN (22:05)
[2023-02-14] MEDS ORDERED: Ondansetron PF 4 MG/2 ML Vial IVP SCH (22:15)
[2023-02-15] MEDS: Piperacillin/Tazobactam 3.375 GM in Sodium Chloride 0.9% 100 ML IVPB SCH ×3 (01:01→18:02)
[2023-02-15] MEDS: Multivit, Therapeutic 1 TAB PO SCH (08:56)
[2023-02-15] MEDS: Lisinopril 20 MG TAB PO SCH (08:56)
[2023-02-15] MEDS: Folic Acid 1 MG TAB PO SCH (08:56)
[2023-02-15] MEDS: Acetaminophen 325 MG TAB PO PRN (09:00)
[2023-02-15] MEDS: traMADol HCl 50 MG TAB PO PRN (15:08)
[2023-02-15] MEDS: Tamsulosin HCl 0.4 MG CAP PO SCH (20:18)
[2023-02-15] MEDS: Thiamine 100 MG TAB PO SCH (20:18)
[2023-02-16] MEDS: traMADol HCl 50 MG TAB PO PRN (03:18)
[2023-02-16] MEDS: Piperacillin/Tazobactam 3.375 GM in Sodium Chloride 0.9% 100 ML IVPB SCH ×3 (03:19→18:22)
[2023-02-16] MEDS: Multivit, Therapeutic 1 TAB PO SCH (09:47)
[2023-02-16] MEDS: Lisinopril 20 MG TAB PO SCH (09:47)
[2023-02-16] MEDS: Folic Acid 1 MG TAB PO SCH (09:48)
[2023-02-16] MEDS: Lorazepam 0.5 MG TAB PO PRN (21:34)
[2023-02-16] MEDS: Thiamine 100 MG TAB PO SCH (21:34)
[2023-02-16] MEDS: Tamsulosin HCl 0.4 MG CAP PO SCH (21:35)
[2023-02-16] MEDS: Morphine 2 MG/ML VIAL SLOW IVP PRN (22:25)
[2023-02-16] MEDS: Ondansetron PF 4 MG/2 ML Vial IVP PRN (22:25)
[2023-02-17] MEDS: Piperacillin/Tazobactam 3.375 GM in Sodium Chloride 0.9% 100 ML IVPB SCH (02:14)
[2023-02-17] MEDS: Folic Acid 1 MG TAB PO SCH (08:49)
[2023-02-17] MEDS: Lisinopril 20 MG TAB PO SCH (08:49)
[2023-02-17] MEDS: Multivit, Therapeutic 1 TAB PO SCH (08:50)
[2023-02-17] MEDS: Tamsulosin HCl 0.4 MG CAP PO SCH (22:20)
[2023-02-17] MEDS: Lorazepam 0.5 MG TAB PO PRN (22:20)
[2023-02-17] MEDS: Thiamine 100 MG TAB PO SCH (22:20)
[2023-02-17] MEDS: traMADol HCl 50 MG TAB PO PRN (22:21)
[2023-02-18 06:44] LABS: #Basophils 0.1 thou/uL (0.0-0.2); #Eosinphils 0.4 thou/uL (0.0-0.7); #Monocytes 2.5 thou/uL (0.11-0.59); #Neutrophils 16.1 thou/uL (1.40-6.50); %Basophils 0.5 % (0.0-1.0); %Eosinophils 1.8 % (0.0-10.0); %Lymphocytes 12.4 % (21.0-51.0); %Monocytes 11.3 % (0.0-10.0); %Neutrophils 73.3 % (42.0-75.0); Hemoglobin 14.1 g/dL (14.0-18.0); Mean Corpuscular HGB CONC 33.4 g/dL (32.0-36.0); Mean Corpuscular Hemoglobin 30.3 pg (27.0-31.0); Mean Corpuscular Volume 90.8 fl (78.0-98.0); Mean Platelet Volume 9.1 fL (7.4-10.4); Platelet Count 424 10x3/uL (130-400); RBC Distribution Width 15.3 % (11.5-14.5); Red Blood Cell (RBC) Count 4.65 mill/uL (4.70-6.10); White Blood Cell (WBC) Count 21.9 10x3/uL (4.8-10.8)
[2023-02-18 07:11] LABS: ALT (SGPT) 11 U/L (8-55); AST (SGOT) 52 U/L (5-34); Albumin 3.2 g/dL (3.4-4.8); Alkaline Phosphatase 145 U/L (40-110); Anion Gap 13 mmol/L (10-20); BUN (Urea Nitrogen) 7 mg/dL (8.4-25.7); Bilirubin, Total 0.4 mg/dL (0.2-1.2); Calc. Creatinine Clearance 106 mL/min (70-130); Calcium 10.3 mg/dL (7.8-10.44); Carbon Dioxide 24 mmol/L (23-31); Chloride 100 mmol/L (98-107); Estimated GFR 104; Globulin 3.8 g/dL (2.4-3.5); Glucose 86 mg/dL (80-115); Potassium 4.4 mmol/L (3.5-5.1); Sodium 133 mmol/L (136-145)
[2023-02-18] MEDS: Multivit, Therapeutic 1 TAB PO SCH (08:41)
[2023-02-18] MEDS: Lisinopril 20 MG TAB PO SCH (08:41)
[2023-02-18] MEDS: Folic Acid 1 MG TAB PO SCH (08:41)
[2023-02-18] MEDS: Thiamine 100 MG TAB PO SCH (21:58)
[2023-02-18] MEDS: Tamsulosin HCl 0.4 MG CAP PO SCH (21:58)
[2023-02-19 06:07] LABS: #Basophils 0.1 thou/uL (0.0-0.2); #Eosinphils 0.4 thou/uL (0.0-0.7); #Monocytes 2.2 thou/uL (0.11-0.59); #Neutrophils 15.8 thou/uL (1.40-6.50); %Basophils 0.6 % (0.0-1.0); %Eosinophils 1.9 % (0.0-10.0); %Lymphocytes 13.5 % (21.0-51.0); %Monocytes 10.3 % (0.0-10.0); %Neutrophils 73.2 % (42.0-75.0); Hemoglobin 13.8 g/dL (14.0-18.0); Mean Corpuscular HGB CONC 32.7 g/dL (32.0-36.0); Mean Corpuscular Hemoglobin 29.7 pg (27.0-31.0); Mean Corpuscular Volume 90.9 fl (78.0-98.0); Platelet Count 404 10x3/uL (130-400); RBC Distribution Width 15.4 % (11.5-14.5); Red Blood Cell (RBC) Count 4.64 mill/uL (4.70-6.10); White Blood Cell (WBC) Count 21.6 10x3/uL (4.8-10.8)
[2023-02-19 06:38] LABS: ALT (SGPT) 12 U/L (8-55); AST (SGOT) 58 U/L (5-34); Albumin 3.1 g/dL (3.4-4.8); Alkaline Phosphatase 150 U/L (40-110); Anion Gap 13 mmol/L (10-20); BUN (Urea Nitrogen) 9 mg/dL (8.4-25.7); Bilirubin, Total 0.2 mg/dL (0.2-1.2); Calc. Creatinine Clearance 104 mL/min (70-130); Calcium 10.5 mg/dL (7.8-10.44); Carbon Dioxide 25 mmol/L (23-31); Chloride 101 mmol/L (98-107); Estimated GFR 104; Globulin 4.2 g/dL (2.4-3.5); Glucose 88 mg/dL (80-115); Potassium 4.7 mmol/L (3.5-5.1); Protein, Total 7.3 g/dL (5.8-8.1); Sodium 134 mmol/L (136-145)
[2023-02-19] MEDS: Multivit, Therapeutic 1 TAB PO SCH (07:35)
[2023-02-19] MEDS: Lisinopril 20 MG TAB PO SCH (07:36)
[2023-02-19] MEDS: Folic Acid 1 MG TAB PO SCH (07:36)
[2023-02-19] MEDS: traMADol HCl 50 MG TAB PO PRN ×2 (09:25→20:32)
[2023-02-19] MEDS ORDERED: Iopamidol-370 76% 500 ML MDV (1 ML CHARGE) ONE (10:31)
[2023-02-19] MEDS: Tamsulosin HCl 0.4 MG CAP PO SCH (20:31)
[2023-02-19] MEDS: Sodium Chloride 0.9% 1,000 ML IV SCH (20:31)
[2023-02-19] MEDS: Thiamine 100 MG TAB PO SCH (21:22)
[2023-02-19] MEDS: Morphine 2 MG/ML VIAL SLOW IVP PRN (21:30)
[2023-02-19] MEDS: Ondansetron PF 4 MG/2 ML Vial IVP PRN (21:30)
[2023-02-20] MEDS: Sodium Chloride 0.9% 1,000 ML IV SCH ×3 (05:25→23:50)
[2023-02-20 06:57] LABS: #Basophils 0.1 thou/uL (0.0-0.2); #Eosinphils 0.4 thou/uL (0.0-0.7); #Monocytes 2.3 thou/uL (0.11-0.59); #Neutrophils 13.4 thou/uL (1.40-6.50); %Basophils 0.4 % (0.0-1.0); %Eosinophils 2.2 % (0.0-10.0); %Lymphocytes 13.4 % (21.0-51.0); %Monocytes 12.1 % (0.0-10.0); %Neutrophils 71.6 % (42.0-75.0); Hemoglobin 13.4 g/dL (14.0-18.0); Mean Corpuscular HGB CONC 32.7 g/dL (32.0-36.0); Mean Corpuscular Hemoglobin 29.9 pg (27.0-31.0); Mean Corpuscular Volume 91.5 fl (78.0-98.0); Mean Platelet Volume 8.8 fL (7.4-10.4); Platelet Count 386 10x3/uL (130-400); RBC Distribution Width 15.4 % (11.5-14.5); Red Blood Cell (RBC) Count 4.48 mill/uL (4.70-6.10); White Blood Cell (WBC) Count 18.7 10x3/uL (4.8-10.8)
[2023-02-20 07:21] LABS: ALT (SGPT) 10 U/L (8-55); AST (SGOT) 50 U/L (5-34); Alkaline Phosphatase 136 U/L (40-110); Anion Gap 13 mmol/L (10-20); BUN (Urea Nitrogen) 8 mg/dL (8.4-25.7); Bilirubin, Total 0.4 mg/dL (0.2-1.2); Calc. Creatinine Clearance 108 mL/min (70-130); Calcium 10.1 mg/dL (7.8-10.44); Carbon Dioxide 24 mmol/L (23-31); Chloride 102 mmol/L (98-107); Estimated GFR 105; Globulin 3.7 g/dL (2.4-3.5); Glucose 88 mg/dL (80-115); Potassium 4.5 mmol/L (3.5-5.1); Protein, Total 6.7 g/dL (5.8-8.1); Sodium 134 mmol/L (136-145)
[2023-02-20] MEDS: Lisinopril 20 MG TAB PO SCH (09:23)
[2023-02-20] MEDS: Acetaminophen 325 MG TAB PO PRN (09:23)
[2023-02-20] MEDS: Multivit, Therapeutic 1 TAB PO SCH (09:23)
[2023-02-20] MEDS: Folic Acid 1 MG TAB PO SCH (09:23)
[2023-02-20] MEDS: Morphine 2 MG/ML VIAL SLOW IVP PRN (19:38)
[2023-02-20] MEDS: Polyethylene Glycol 3350 17 GM Packet PO SCH (21:13)
[2023-02-20] MEDS: Thiamine 100 MG TAB PO SCH (21:13)
[2023-02-20] MEDS: Tamsulosin HCl 0.4 MG CAP PO SCH (21:13)
[2023-02-21] MEDS: Sodium Chloride 0.9% 1,000 ML IV SCH (05:09)
[2023-02-21 06:24] LABS: #Basophils 0.1 thou/uL (0.0-0.2); #Eosinphils 0.4 thou/uL (0.0-0.7); #Monocytes 2.5 thou/uL (0.11-0.59); #Neutrophils 15.1 thou/uL (1.40-6.50); %Basophils 0.5 % (0.0-1.0); %Lymphocytes 12.6 % (21.0-51.0); %Monocytes 11.8 % (0.0-10.0); %Neutrophils 72.5 % (42.0-75.0); Hemoglobin 13.2 g/dL (14.0-18.0); Mean Corpuscular HGB CONC 32.7 g/dL (32.0-36.0); Mean Corpuscular Hemoglobin 29.5 pg (27.0-31.0); Mean Corpuscular Volume 90.2 fl (78.0-98.0); Mean Platelet Volume 9.4 fL (7.4-10.4); Platelet Count 394 10x3/uL (130-400); RBC Distribution Width 15.3 % (11.5-14.5); Red Blood Cell (RBC) Count 4.48 mill/uL (4.70-6.10); White Blood Cell (WBC) Count 20.8 10x3/uL (4.8-10.8)
[2023-02-21 06:53] LABS: ALT (SGPT) 9 U/L (8-55); AST (SGOT) 50 U/L (5-34); Albumin 2.9 g/dL (3.4-4.8); Alkaline Phosphatase 141 U/L (40-110); Anion Gap 10 mmol/L (10-20); BUN (Urea Nitrogen) 6 mg/dL (8.4-25.7); Bilirubin, Total 0.2 mg/dL (0.2-1.2); Calc. Creatinine Clearance 106 mL/min (70-130); Carbon Dioxide 25 mmol/L (23-31); Chloride 103 mmol/L (98-107); Estimated GFR 104; Globulin 3.6 g/dL (2.4-3.5); Glucose 94 mg/dL (80-115); Potassium 4.3 mmol/L (3.5-5.1); Protein, Total 6.5 g/dL (5.8-8.1); Sodium 134 mmol/L (136-145)
[2023-02-21] MEDS ORDERED: Polyethylene Glycol 3350 17 GM Packet PO SCH (09:00)
[2023-02-21] MEDS: Lisinopril 20 MG TAB PO SCH (09:31)
[2023-02-21] MEDS: Folic Acid 1 MG TAB PO SCH (09:31)
[2023-02-21] MEDS: Polyethylene Glycol 3350 17 GM Packet PO SCH ×2 (09:31→19:44)
[2023-02-21] MEDS: Multivit, Therapeutic 1 TAB PO SCH (09:31)
[2023-02-21] MEDS: Tamsulosin HCl 0.4 MG CAP PO SCH (19:44)
[2023-02-21] MEDS: Mag-Al 1200 mg/1200 mg/30 ML UDCUP PO PRN (19:44)
[2023-02-21] MEDS: Thiamine 100 MG TAB PO SCH (21:42)
[2023-02-22 06:26] LABS: #Basophils 0.1 thou/uL (0.0-0.2); #Eosinphils 0.4 thou/uL (0.0-0.7); #Monocytes 2.5 thou/uL (0.11-0.59); #Neutrophils 14.3 thou/uL (1.40-6.50); %Basophils 0.5 % (0.0-1.0); %Eosinophils 1.8 % (0.0-10.0); %Lymphocytes 11.8 % (21.0-51.0); %Monocytes 12.6 % (0.0-10.0); %Neutrophils 72.8 % (42.0-75.0); Hemoglobin 13.5 g/dL (14.0-18.0); Mean Corpuscular HGB CONC 32.3 g/dL (32.0-36.0); Mean Corpuscular Hemoglobin 29.6 pg (27.0-31.0); Mean Corpuscular Volume 91.7 fl (78.0-98.0); Platelet Count 382 10x3/uL (130-400); RBC Distribution Width 15.5 % (11.5-14.5); Red Blood Cell (RBC) Count 4.56 mill/uL (4.70-6.10); White Blood Cell (WBC) Count 19.6 10x3/uL (4.8-10.8)
[2023-02-22 06:59] LABS: ALT (SGPT) 11 U/L (8-55); AST (SGOT) 54 U/L (5-34); Alkaline Phosphatase 138 U/L (40-110); Anion Gap 11 mmol/L (10-20); BUN (Urea Nitrogen) 6 mg/dL (8.4-25.7); Bilirubin, Total 0.5 mg/dL (0.2-1.2); Calc. Creatinine Clearance 104 mL/min (70-130); Calcium 10.4 mg/dL (7.8-10.44); Carbon Dioxide 25 mmol/L (23-31); Chloride 103 mmol/L (98-107); Estimated GFR 104; Globulin 3.7 g/dL (2.4-3.5); Glucose 98 mg/dL (80-115); Potassium 4.3 mmol/L (3.5-5.1); Protein, Total 6.7 g/dL (5.8-8.1); Sodium 135 mmol/L (136-145)
[2023-02-22] MEDS: Polyethylene Glycol 3350 17 GM Packet PO SCH ×2 (09:13→21:10)
[2023-02-22] MEDS: Folic Acid 1 MG TAB PO SCH (09:14)
[2023-02-22] MEDS: Lisinopril 20 MG TAB PO SCH (09:14)
[2023-02-22] MEDS: Multivit, Therapeutic 1 TAB PO SCH (09:14)
[2023-02-22] MEDS: traMADol HCl 50 MG TAB PO PRN (12:08)
[2023-02-22] MEDS: Acetaminophen 325 MG TAB PO PRN (12:09)
[2023-02-22] MEDS: Tamsulosin HCl 0.4 MG CAP PO SCH (21:09)
[2023-02-22] MEDS: Thiamine 100 MG TAB PO SCH (21:11)
[2023-02-23] MEDS: Polyethylene Glycol 3350 17 GM Packet PO SCH (09:57)
[2023-02-23] MEDS: Lisinopril 20 MG TAB PO SCH (09:57)
[2023-02-23] MEDS: Multivit, Therapeutic 1 TAB PO SCH (09:57)
[2023-02-23] MEDS: Folic Acid 1 MG TAB PO SCH (09:57)
[2023-02-23 16:02] VITALS: BP 125/75; TEMP 98.5
== END 2023-02-23 16:50 | disposition home or self-care (01) | DRG 436 ==
LOC: ERS 14:24 → ERHOLD 20:04 → SJJU 02-07 03:38 → OBSVTOIN 02-08 12:11
PROVIDERS: ADMIT Internal Medicine; ATTEND Hospitalist
PROC: 0FB13ZX Excision of Right Lobe Liver, Percutaneous Approach, Diagnostic (ICD-10-PCS; principal; 2023-02-11)
DX: C78.7 Secondary malignant neoplasm of liver and intrahepatic bile duct (principal); C24.9 Malignant neoplasm of biliary tract, unspecified; E87.1 Hypo-osmolality and hyponatremia; C25.9 Malignant neoplasm of pancreas, unspecified; I10 Essential (primary) hypertension; K21.9 Gastro-esophageal reflux disease without esophagitis; G89.29 Other chronic pain; F17.210 Nicotine dependence, cigarettes, uncomplicated; N40.0 Benign prostatic hyperplasia without lower urinary tract symptoms; B18.2 Chronic viral hepatitis C; F19.10 Other psychoactive substance abuse, uncomplicated; Z66 Do not resuscitate; E83.52 Hypercalcemia; F10.20 Alcohol dependence, uncomplicated; Z79.899 Other long term (current) drug therapy
CPT/HCPCS: 36415; 47000; 71275; 72132; 74177; 74183; 76705; 77012; 78226; 80053; 80074; 80306; 80307; 81001; 82105; 82140; 82378; 82550; 82805; 83605; 83690; 83735; 83880; 84100; 84484; 85025; 85610; 86301; 87040; 87389; 87522; 88307; 88333; 88341; 88342; 93005; 93010; 93306; 96365; 96366; 96367; 96375; 96376; A9537; G0378; J1650; J2250; J2270; J2272; J2405; J2543; J3010; J3411; J3475; J3490; J7042; J7050; Q9967